=== PATIENT | female | born 1940 | race Caucasian/White ===

== ENCOUNTER → 2017-02-20 | Outpatient (CLI) | payer MEDICARE ==
[2013-12-24 12:22] VITALS: BP 138/65
[~2017-02-20] MED LIST: DIAZ5TAB4 PO; GLUC100018 PO; IBUP200C9 PO; VIT1TABL32 PO
--- NOTE | 2017-02-20 12:33 | CARD ---
APPROVED REPORT EXAM: Two-dimensional and M-mode echocardiogram with Doppler and color Doppler. Other Information Quality : Average INDICATION Syncope 2D DIMENSIONS RVDd2.9 (2.9-3.5cm)Left Atrium(2D)3.6 (1.6-4.0cm) IVSd1.0 (0.7-1.1cm)Aortic Root(2D)2.7 (2.0-3.7cm) LVDd4.5 (3.9-5.9cm)LVOT Diameter1.8 (1.8-2.4cm) PWd0.9 (0.7-1.1cm)LVDs3.7 (2.5-4.0cm) FS (%) 17.6 %SV33.6 ml LVEF(%)55.0 (>50%) Aortic Valve AoV Peak Chris.177.2cm/sAoV VTI42.2cm AO Peak GR.12.6mmHgLVOT Peak Chris.63.6cm/s LVOT VTI 17.35cmAO Mean GR.8mmHg ERVIN (VMAX)0.49jr3BAJ (VTI)0.90cm2 Mitral Valve MV E Nrznmlza51.6cm/sMV DECEL [id number] MV A Plykxcyk16.6cm/sMV E Mean Gr.1mmHg MV EWM64guU/A Ratio0.9 MV A Gtbaqdpo03vsORB (PHT)3.16cm2 TDI E/Lateral E'8.0E/Medial E'6.2 Pulmonary Valve PV Peak Aclhdnkx448.7cm/sPV Peak Grad.7mmHg RVOT VTI13.2cm Tricuspid Valve TR P. Krdorafc018gk/sTR Peak Gr.28mmHg Pulmonary Vein S1 Folxjpli68.3cm/sD2 Xemxpfxg90.0cm/s LEFT VENTRICLE The left ventricle is normal size. There is normal left ventricular wall thickness. The left ventricu lar systolic function is mildly reduced. Estimated visual EF of 45-50% There is normal LV segmental w all motion. The left ventricular diastolic function and filling is normal for age. RIGHT VENTRICLE The right ventricle is normal size. There is normal right ventricular wall thickness. The right ventr icular systolic function is normal. ATRIA The left atrium size is normal. The right atrium size is normal. The interatrial septum is intact wit h no evidence for an atrial septal defect or patent foramen ovale as noted on 2-D or Doppler imaging. AORTIC VALVE The aortic valve is sclerotic and not well visualized. It appears to have restricted leaflet motion, without clear evidence of stenosis by doppler testing. Doppler and Color Flow revealed no significant aortic regurgitation. There is no significant aortic valvular stenosis. MITRAL VALVE The mitral valve is normal in structure and function. There is no mitral valve stenosis. Doppler and Color Flow revealed mild mitral regurgitation. TRICUSPID VALVE The tricuspid valve is normal in structure and function. Doppler and Color Flow revealed mild tricusp id regurgitation. The PA pressure was estimated at 31 mmHg. PULMONIC VALVE Doppler and Color Flow revealed no pulmonic valvular regurgitation. GREAT VESSELS The aortic root is normal in size. Normal pulmonary venous flow (Doppler). The IVC is normal in size and collapses >50% with inspiration. PERICARDIAL EFFUSION There is no pleural effusion. There is no evidence of significant pericardial effusion. Critical Notification Critical Value: No <Conclusion> The left ventricular systolic function is mildly reduced. Estimated visual EF of 45-50% There is normal LV segmental wall motion. The aortic valve is sclerotic and not well visualized. It appears to have restricted leaflet motion, without clear evidence of stenosis by doppler testing.
== END | disposition home or self-care (01) ==
LOC: ECHO 10:19
PROVIDERS: ATTEND Internal Medicine Cardiovascular Disease
DX: I08.1 Rheumatic disorders of both mitral and tricuspid valves (principal); I47.1 Supraventricular tachycardia; R55 Syncope and collapse
CPT/HCPCS: 93306

== ENCOUNTER → 2017-04-17 | Outpatient (CLI) | payer MEDICARE ==
[2017-03-21 10:15] VITALS: BP 167/85
== END | disposition home or self-care (01) ==
LOC: PMGWOUND 12:13
PROVIDERS: ATTEND Emergency Medicine Undersea and Hyperbaric Medicine
DX: S51.811A Laceration without foreign body of right forearm, initial encounter (principal); Z85.3 Personal history of malignant neoplasm of breast; Z87.891 Personal history of nicotine dependence; W54.0XXA Bitten by dog, initial encounter; Y93.9 Activity, unspecified; Y99.8 Other external cause status; Y92.9 Unspecified place or not applicable
CPT/HCPCS: 99213

== ENCOUNTER → 2019-03-02 | Outpatient (CLI) | payer MEDICARE ==
[2017-03-21 10:15] VITALS: BP 167/85
--- NOTE | 2019-03-03 08:55 | CARD ---
MR#: [id number] Date of Study: 03/02/2019 Ordering Physician: PRINCESS CERNA, Referring Physician: Lucretia OLVERA: Loren Bowden LAURITA APPROVED REPORT EXAM: Two-dimensional and M-mode echocardiogram with Doppler and color Doppler. Other Information Quality : AverageHR: 64bpm Rhythm : NSR INDICATION Arrhythmia 2D DIMENSIONS RVDd2.6 (2.9-3.5cm)Left Atrium(2D)4.1 (1.6-4.0cm) IVSd1.1 (0.7-1.1cm)Aortic Root(2D)2.0 (2.0-3.7cm) LVDd5.4 (3.9-5.9cm)LVOT Diameter2.0 (1.8-2.4cm) PWd0.5 (0.7-1.1cm)LVDs3.9 (2.5-4.0cm) FS (%) 28.4 %SV77.0 ml LVEF(%)54.2 (>50%) Aortic Valve AoV Peak Chris.249.2cm/sAoV VTI67.2cm AO Peak GR.24.8mmHgLVOT Peak Chris.65.9cm/s AO Mean GR.16mmHg Mitral Valve MV E Vtzinfbh33.9cm/sMV E Peak Gr.4mmHg MV DECEL [id number] A Hrktkzoy85.0cm/s MV E Mean Gr.1mmHgE/A Ratio1.5 Pulmonary Valve PV Peak Mrpjffvn27.3cm/s Tricuspid Valve TR P. Mdknwxup090rf/sRAP GVPUIDBC7moQp TR Peak Gr.53czXnKDIG36pqUf Pulmonary Vein S1 Rdwwwwjf28.8cm/sD2 Bnjzztzc30.1cm/s LEFT VENTRICLE The left ventricle is normal size. There is borderline to mild concentric left ventricular hypertroph y. The left ventricular systolic function is low normal. The Ejection Fraction is 50%. There is jeremy l LV segmental wall motion. Transmitral Doppler flow pattern is Grade II-pseudonormal filling dynamic s. RIGHT VENTRICLE The right ventricle is normal size. There is normal right ventricular wall thickness. The right ventr icular systolic function is normal. ATRIA The left atrium is mildly dilated. The right atrium size is normal. The interatrial septum is intact with no evidence for an atrial septal defect or patent foramen ovale as noted on 2-D or Doppler imagi ng. AORTIC VALVE The aortic valve is calcified and displays decreased opening. The aortic valve is trileaflet. Doppler and Color Flow revealed no significant aortic regurgitation. There is mild valvular aortic stenosis. Maximum pressure gradient of 25 mmHg and mean pressure gradient of 16 mmHg. MITRAL VALVE Mitral annular calcification is mild. There is no evidence of mitral valve prolapse. There is no mitr al valve stenosis. Doppler and Color-flow revealed mild mitral regurgitation. TRICUSPID VALVE The tricuspid valve is normal in structure and function. Doppler and Color Flow revealed trace to mil d tricuspid regurgitation. The PA pressure was estimated at 33 mmHg. There is no tricuspid valve prol apse or vegetation. There is no tricuspid valve stenosis. PULMONIC VALVE The pulmonic valve is not well visualized. GREAT VESSELS The aortic root is normal in size. The ascending aorta is normal in size. The IVC is normal in size a nd collapses >50% with inspiration. PERICARDIAL EFFUSION There is no evidence of significant pericardial effusion. Critical Notification Critical Value: No <Conclusion> The left ventricular systolic function is low normal. The Ejection Fraction is 50%. Transmitral Doppler flow pattern is Grade II-pseudonormal filling dynamics. There is mild valvular aortic stenosis. Mean pressure gradient of 16 mmHg. Mild mitral regurgitation. Trace to mild tricuspid regurgitation. The PA pressure was estimated at 33 mmHg. There is no evidence of significant pericardial effusion. Signed by : Princess Cerna, Electronically Approved : 03/03/2019 08:55:08
== END | disposition home or self-care (01) ==
LOC: ECHO 12:38
PROVIDERS: ATTEND Internal Medicine Cardiovascular Disease
DX: I08.3 Combined rheumatic disorders of mitral, aortic and tricuspid valves (principal); I47.1 Supraventricular tachycardia
CPT/HCPCS: 93306

== ENCOUNTER → 2020-05-25 | Outpatient (CLI) | payer MEDICARE ==
[2017-03-21 10:15] VITALS: BP 167/85
--- NOTE | 2020-05-25 17:41 | CARD ---
MR#: [id number] Date of Study: 05/25/2020 Ordering Physician: PRINCESS LEE, Referring Physician: PRINCESS LEE Tech: Evy Zuniga RDCS APPROVED REPORT EXAM: Two-dimensional and M-mode echocardiogram with Doppler and color Doppler. Other Information Quality : Good INDICATION Paroxysmal Atrial Fibrillation 2D DIMENSIONS RVDd2.6 (2.9-3.5cm)Left Atrium(2D)3.7 (1.6-4.0cm) IVSd1.0 (0.7-1.1cm)Aortic Root(2D)2.9 (2.0-3.7cm) LVDd5.2 (3.9-5.9cm)LVOT Diameter2.1 (1.8-2.4cm) PWd0.9 (0.7-1.1cm)LVDs3.8 (2.5-4.0cm) FS (%) 26.0 %SV65.3 ml Aortic Valve AoV Peak Chris.284.4cm/sAoV VTI75.7cm AO Peak GR.32.4mmHgLVOT Peak Chris.75.8cm/s AO Mean GR.22mmHgAVA (VMAX)0.91cm2 ERVIN (VTI)0.80cm2 Mitral Valve MV E Rkevhztd97.4cm/sMV E Peak Gr.3mmHg MV DECEL [id number] A Cczzuhom69.9cm/s MV E Mean Gr.1mmHgE/A Ratio0.8 Tricuspid Valve TR P. Nxtnflrd834ly/sRAP QEEIQVVM2foIa TR Peak Gr.10psZuXTJV91ewSr Pulmonary Vein S1 Sgrsnamj82.8cm/sD2 Lgismaxq99.6cm/s LEFT VENTRICLE The left ventricle is normal size. There is borderline concentric left ventricular hypertrophy. The l eft ventricular systolic function is normal and the ejection fraction is within normal range. The Eje ction Fraction is 50-55%. There is normal LV segmental wall motion. Transmitral Doppler flow pattern is Grade I-abnormal relaxation pattern. RIGHT VENTRICLE The right ventricle is normal size. The right ventricular systolic function is normal. ATRIA The left atrium size is normal. The right atrium size is normal. The interatrial septum is intact wit h no evidence for an atrial septal defect or patent foramen ovale as noted on 2-D or Doppler imaging. AORTIC VALVE The aortic valve is calcified and displays decreased opening. Doppler and Color Flow revealed trace a ortic regurgitation. Calculated aortic valve maximum pressure gradient of 32 mmHg and mean pressure g radient of 22 mmHg. Visual analysis revealed moderate aortic stenosis. MITRAL VALVE Mitral annular calcification is moderate. The mitral valve is calcified. There is no evidence of mitr al valve prolapse. Calculated mitral valve area is 2.2 cm2 with maximum pressure gradient of 3 mmHg a nd mean pressure gradient of 1 mmHg. There is no significant mitral valve stenosis. Doppler and Color -flow revealed mild mitral regurgitation. TRICUSPID VALVE The tricuspid valve is normal in structure and function. Doppler and Color Flow revealed mild tricusp id regurgitation. The PA pressure was estimated at 28 mmHg. There is no tricuspid valve stenosis. PULMONIC VALVE The pulmonic valve is not well visualized. Doppler and Color Flow revealed mild pulmonic valvular reg urgitation. There is no pulmonic valvular stenosis. GREAT VESSELS The aortic root is normal in size. The ascending aorta is mildly dilated at 3.4 cm. The IVC is normal in size and collapses >50% with inspiration. PERICARDIAL EFFUSION There is no evidence of significant pericardial effusion. Critical Notification Critical Value: No <Conclusion> The left ventricle is normal size. The left ventricular systolic function is normal and the ejection fraction is within normal range. The Ejection Fraction is 50-55%. There is borderline concentric left ventricular hypertrophy. The aortic valve is calcified and displays decreased opening. Doppler and Color Flow revealed trace aortic regurgitation. Calculated aortic valve maximum pressure gradient of 32 mmHg and mean pressure gradient of 22 mmHg. Visual analysis revealed moderate aortic stenosis. Doppler and Color-flow revealed mild mitral regurgitation. Doppler and Color Flow revealed mild tricuspid regurgitation. The PA pressure was estimated at 28 mmHg. The ascending aorta is mildly dilated at 3.4 cm. Signed by : Sacha Mcgrath MD Electronically Approved : 05/25/2020 17:40:49
== END ==
LOC: ECHO 10:40
PROVIDERS: ATTEND Internal Medicine Cardiovascular Disease
DX: I47.1 Supraventricular tachycardia (principal); I08.8 Other rheumatic multiple valve diseases
CPT/HCPCS: 93306

== ENCOUNTER 2021-02-15 10:46 | Inpatient (IN) | payer MEDICARE ==
[~2021-02-15] VITALS: Ht 167.6 cm; Wt 62.7 kg
[2021-02-15] MEDS ORDERED: IV NORMAL SALINE 1000ML BAG 1,000 ML IV ONE (11:15)
[2021-02-15 11:33] LABS: BASO % 0 % (0-3); EOS % 0 % (0-3); HEMATOCRIT 28.2 % (36.0-47.0); HEMOGLOBIN 9.3 g/dL (12.0-15.5); LYMPH # 2.7 x10^3/uL (1.0-4.8); LYMPH % 18 % (24-48); MEAN CORPUSCULAR HEMOGLOBIN 30 pg (25-35); MEAN CORPUSCULAR HGB CONC 33 g/dL (31-37); MEAN CORPUSCULAR VOLUME 92 fL (79-100); MONO # 0.5 x10^3/uL (0.0-1.1); MONO % 4 % (0-9); NEUT % 79 % (31-73); PLATELET COUNT 284 x10^3/uL (140-400); RED BLOOD COUNT 3.06 x10^6/uL (3.50-5.40); RED CELL DISTRIBUTION WIDTH 13.9 % (11.5-14.5); WHITE BLOOD COUNT 15.2 x10^3/uL (4.0-11.0)
[2021-02-15 11:39] LABS: FECAL OB PT POSITIVE (NEG)
[2021-02-15 11:42] LABS: CALCIUM 8.8 mg/dL (8.5-10.1); CREATININE 1.2 mg/dL (0.6-1.0); GFR 43.1; POTASSIUM 4.6 mmol/L (3.5-5.1)
[2021-02-15 11:48] LABS: ALBUMIN 3.2 g/dL (3.4-5.0); MAGNESIUM 1.9 mg/dL (1.8-2.4); PHOSPHORUS 3.6 mg/dL (2.6-4.7); TOTAL BILIRUBIN 0.2 mg/dL (0.2-1.0); TOTAL PROTEIN 6.5 g/dL (6.4-8.2)
[2021-02-15 11:56] LABS: CREATINE KINASE 53 U/L (26-192); PROTHROMBIN TIME PATIENT 13.1 SEC (11.7-14.0)
--- NOTE | 2021-02-15 12:12 | PDOC1 ---
History and Physical Date of Admission Date of Admission DATE: 02/15/21 TIME: 12:12 Identification/Chief Complaint Chief Complaint weak with dark stools, anemic History of Present Illness History of Present Illness 80-year-old female who presented to the emergency department awoke , felt weak and dizzy this morning patient's went directly to the bathroom and had a dark bowel movement, was unable to walk without holding onto the steele because she felt so weak and dizzy. cr 1.2 admits to taking lots of Advil recently for arthritis hgb returned at 9.3, She is not sure of her last colonoscopy impression / GI bleed suspect PUD vs gastric / vs duodenal ulcer sec to Advil Gastrointestinal hemorrhage, unspecified /osteoarthritis /STEPHIE suspect acute vasomotor nephropathy Near syncope, likely vasovagal near syncope Weakness with dizziness, multifactorial with acute blood loss , volume depletion PLAN ADMIT, IV PROTONIX, GI CONSULT,NPO, SERIAL H/H /scd's /iv protoni serial h/h q 8 hrs, transfuse for hgb < 7.5 /no NSAIDS /TELE nephrology consut /iv fluid support Past Medical History Past Medical History Past Medical History Past Medical History: Cancer, Other Additional Past Medical Histor: degenerative disc disease, spastic colon, ca breast,PVC'S Past Surgical History: Appendectomy, Cholecystectomy Additional Past Surgical Histo: R lumpectomy Smoking Status: Never Smoker Alcohol Use: None Drug Use: None GM HAD DIABETES Cardiovascular: Hyperlipidemia Musculoskeletal: Osteoarthritis Infectious disease: No pertinent hx ENT: No pertinent hx Renal/: No pertinent hx Endocrine: No pertinent hx Family History Family History: Diabetes Family History: Grandparents Social History Smoke: No ALCOHOL: none Drugs: None Current Medications Current Medications Current Medications Sodium Chloride 1,000 ml @ 1,000 mls/hr 1X ONCE IV Last administered on 02/15/21at 11:00; Start 02/15/21 at 11:15; Stop 02/15/21 at 12:14 Active Scripts Active Reported Diazepam 5 Mg Tablet 1 Tab PO BID Ocuvite Tablet (Vit A,C & E/Lutein/Minerals) 1 Each Tablet 1 Each PO Advil (Ibuprofen) 200 Mg Capsule 200 Mg PO Glucosamine (Glucosamine Sulfate 2KCL) 1,000 Mg Tablet 1,000 Mg PO Allergies Allergies: Coded Allergies: Penicillins (Verified Allergy, Mild, [facility], 12/22/13) Sulfa (Sulfonamide Antibiotics) (Verified Allergy, Mild, [facility], 12/22/13) latex (Verified Allergy, Mild, [facility], 12/22/13) ROS Review of System 14 PT ROS OTHERWISE NEG General: YES: Fatigue; No: Chills, Night Sweats, Malaise, Appetite, Other PSYCHOLOGICAL ROS: No: Anxiety, Behavioral Disorder, Concentration difficultie, Decreased libido, Depression, Disorientation, Hallucinations, Hostility, Irritablity, Memory difficulties, Mood Swings, Obsessive thoughts, Physical abuse, Sexual abuse, Sleep disturbances, Suicidal ideation, Other Eyes: No Blurry vision, No Decreased vision, No Double vision, No Dry eyes, No Excessive tearing, No Eye Pain, No Itchy Eyes, No Loss of vision, No Photophobia, No Scotomata, No Uses contacts, No Uses glasses, No Other HEENT: No: Heacaches, Visual Changes, Hearing change, Nasal congestion, Nasal discharge, Oral lesions, Sinus pain, Sore Throat, Epistaxis, Sneezing, Snoring, Tinnitus, Vertigo, Vocal changes, Other ALLERGY AND IMMUNOLOGY: YES: Hives; No: Insect Bite Sensitivity, Itchy/Watery Eyes, Nasal Congestion, Post Nasal Drip, Seasonal Allergies, Other Hematological and Lymphatic: YES: Bleeding Problems; No: Blood Clots, Blood Transfusions, Brusing, Night Sweats, Pallor, Swollen Lymph Nodes, Other ENDOCRINE: No: Breast Changes, Galactorrhea, Hair Pattern Changes, Hot Flashes, Malaise/lethargy, Mood Swings, Palpitations, Polydipsia/polyuria, Skin Changes, Temperature Intolerance, Unexpected Weight Changes, Other Breast: No New/Changing Breast Lumps, No Nipple changes, No Nipple discharge, No Other Respiratory: No: Cough, Hemoptysis, Orthopnea, Pleuritic Pain, Shortness of breath, SOB with excertion, Sputum Changes, Stridor, Tachypnea, Wheezing, Other Cardiovascular: No Chest Pain, No Palpitations, No Orthopnea, No Paroxysmal Noc. Dyspnea, No Edema, No Lt Headedness, No Other Gastrointestinal: Yes Melena Genitourinary: No Dysuria, No Frequency, No Incontinence, No Hematuria, No Retention, No Discharge, No Urgency, No Pain, No Flank Pain, No Other, No , No , No , No , No , No , No Musculoskeletal: No Gait Disturbance, No Joint Pain, No Joint Stiffness, No Joint Swelling, No Muscle Pain, No Muscular Weakness, No Pain In:, No Swelling In:, No Other Neurological: No Behavorial Changes, No Bowel/Bladder ControlChng, No Confusion, No Dizziness, No Gait Disturbance, No Headaches, No Impaired Coord/balance, No Memory Loss, No Numbness/Tingling, No Seizures, No Speech Problems, No Tremors, No Visual Changes, No Weakness, No Other Skin: No Dry Skin, No Eczema, No Hair Changes, No Lumps, No Mole Changes, No Mottling, No Nail Changes, No Pruritus, No Rash, No Skin Lesion Changes, No Other, No Acne Physical Exam Physical Exam Constitutional: well nourished, no acute distress, non-toxic appearance. lying on gurney in ER HENT: Normocephalic, atraumatic. Eyes: Conjunctiva normal, no discharge. Neck: Normal range of motion, no stridor. Cardiovascular: No cyanosis appreciated, distal cap refill less than 2 seconds. Lungs & Thorax: CTA Abdomen: Nontender, no abnormalities noted. Normal bowel sounds Skin: Warm, dry, no erythema, no rash. Back: No tenderness, no deformities. Extremities: No tenderness, no cyanosis, no clubbing, ROM intact, no edema. Neurologic: Alert and oriented X 3, normal motor function, normal sensory function, no focal deficits noted. Psychologic: Affect normal, judgment normal, mood normal. General: Alert, Oriented X3, Cooperative HEENT: Atraumatic, PERRLA, EOMI, Mucous membr. moist/pink Lungs: Clear to auscultation, Normal air movement Heart: S1S2, RRR, no thrills, no jug vein distention Breasts: Not examined Abdomen: Normal bowel sounds, Soft, No hepatosplenomegaly Rectal Exam: not examined PELVIC: Examination not indicated Extremities: No clubbing, No cyanosis, No edema Skin: No breakdown, No significant lesion Neuro: Normal speech, Strength at 5/5 X4 ext, Cranial nerves 3-12 NL Psych/Mental Status: Mental status NL, Mood NL Vitals Vitals Vital Signs Date Time Temp Pulse Resp B/P (MAP) Pulse Ox O2 Delivery O2 Flow Rate FiO2 02/15/21 10:54 97.9 83 22 140/66 (90) 98 Room Air 97.9 Labs Labs Laboratory Tests Test 02/15/21 11:00 02/15/21 11:20 White Blood Count 15.2 x10^3/uL (4.0-11.0) Red Blood Count 3.06 x10^6/uL (3.50-5.40) Hemoglobin 9.3 g/dL (12.0-15.5) Hematocrit 28.2 % (36.0-47.0) Mean Corpuscular Volume 92 fL (79-100) Mean Corpuscular Hemoglobin 30 pg (25-35) Mean Corpuscular Hemoglobin Concent 33 g/dL (31-37) Red Cell Distribution Width 13.9 % (11.5-14.5) Platelet Count 284 x10^3/uL (140-400) Neutrophils (%) (Auto) 79 % (31-73) Lymphocytes (%) (Auto) 18 % (24-48) Monocytes (%) (Auto) 4 % (0-9) Eosinophils (%) (Auto) 0 % (0-3) Basophils (%) (Auto) 0 % (0-3) Neutrophils # (Auto) 12.0 x10^3/uL (1.8-7.7) Lymphocytes # (Auto) 2.7 x10^3/uL (1.0-4.8) Monocytes # (Auto) 0.5 x10^3/uL (0.0-1.1) Eosinophils # (Auto) 0.0 x10^3/uL (0.0-0.7) Basophils # (Auto) 0.0 x10^3/uL (0.0-0.2) Sodium Level 142 mmol/L (136-145) Potassium Level 4.6 mmol/L (3.5-5.1) Chloride Level 105 mmol/L (98-107) Carbon Dioxide Level 27 mmol/L (21-32) Anion Gap 10 (6-14) Blood Urea Nitrogen 69 mg/dL (7-20) Creatinine 1.2 mg/dL (0.6-1.0) Estimated GFR (Cockcroft-Gault) 43.1 BUN/Creatinine Ratio 58 (6-20) Glucose Level 200 mg/dL (70-99) Calcium Level 8.8 mg/dL (8.5-10.1) Phosphorus Level 3.6 mg/dL (2.6-4.7) Magnesium Level 1.9 mg/dL (1.8-2.4) Total Bilirubin 0.2 mg/dL (0.2-1.0) Aspartate Amino Transf (AST/SGOT) 17 U/L (15-37) Alanine Aminotransferase (ALT/SGPT) 23 U/L (14-59) Alkaline Phosphatase 47 U/L (46-116) Troponin I Quantitative < 0.017 ng/mL (0.000-0.055) Total Protein 6.5 g/dL (6.4-8.2) Albumin 3.2 g/dL (3.4-5.0) Albumin/Globulin Ratio 1.0 (1.0-1.7) Stool Occult Blood Positive (NEG) Laboratory Tests Test 02/15/21 11:00 02/15/21 11:20 White Blood Count 15.2 x10^3/uL (4.0-11.0) Red Blood Count 3.06 x10^6/uL (3.50-5.40) Hemoglobin 9.3 g/dL (12.0-15.5) Hematocrit 28.2 % (36.0-47.0) Mean Corpuscular Volume 92 fL (79-100) Mean Corpuscular Hemoglobin 30 pg (25-35) Mean Corpuscular Hemoglobin Concent 33 g/dL (31-37) Red Cell Distribution Width 13.9 % (11.5-14.5) Platelet Count 284 x10^3/uL (140-400) Neutrophils (%) (Auto) 79 % (31-73) Lymphocytes (%) (Auto) 18 % (24-48) Monocytes (%) (Auto) 4 % (0-9) Eosinophils (%) (Auto) 0 % (0-3) Basophils (%) (Auto) 0 % (0-3) Neutrophils # (Auto) 12.0 x10^3/uL (1.8-7.7) Lymphocytes # (Auto) 2.7 x10^3/uL (1.0-4.8) Monocytes # (Auto) 0.5 x10^3/uL (0.0-1.1) Eosinophils # (Auto) 0.0 x10^3/uL (0.0-0.7) Basophils # (Auto) 0.0 x10^3/uL (0.0-0.2) Sodium Level 142 mmol/L (136-145) Potassium Level 4.6 mmol/L (3.5-5.1) Chloride Level 105 mmol/L (98-107) Carbon Dioxide Level 27 mmol/L (21-32) Anion Gap 10 (6-14) Blood Urea Nitrogen 69 mg/dL (7-20) Creatinine 1.2 mg/dL (0.6-1.0) Estimated GFR (Cockcroft-Gault) 43.1 BUN/Creatinine Ratio 58 (6-20) Glucose Level 200 mg/dL (70-99) Calcium Level 8.8 mg/dL (8.5-10.1) Phosphorus Level 3.6 mg/dL (2.6-4.7) Magnesium Level 1.9 mg/dL (1.8-2.4) Total Bilirubin 0.2 mg/dL (0.2-1.0) Aspartate Amino Transf (AST/SGOT) 17 U/L (15-37) Alanine Aminotransferase (ALT/SGPT) 23 U/L (14-59) Alkaline Phosphatase 47 U/L (46-116) Troponin I Quantitative < 0.017 ng/mL (0.000-0.055) Total Protein 6.5 g/dL (6.4-8.2) Albumin 3.2 g/dL (3.4-5.0) Albumin/Globulin Ratio 1.0 (1.0-1.7) Stool Occult Blood Positive (NEG) Images Images ATRIA The left atrium size is normal. The right atrium size is normal. The interatrial septum is intact with no evidence for an atrial septal defect or patent foramen ovale as noted on 2-D or Doppler imaging. AORTIC VALVE The aortic valve is calcified and displays decreased opening. Doppler and Color Flow revealed trace aortic regurgitation. Calculated aortic valve maximum pressure gradient of 32 mmHg and mean pressure gradient of 22 mmHg. Visual analysis revealed moderate aortic stenosis. MITRAL VALVE Mitral annular calcification is moderate. The mitral valve is calcified. There is no evidence of mitral valve prolapse. Calculated mitral valve area is 2.2 cm2 with maximum pressure gradient of 3 mmHg and mean pressure gradient of 1 mmHg. There is no significant mitral valve stenosis. Doppler and Color-flow revealed mild mitral regurgitation. TRICUSPID VALVE The tricuspid valve is normal in structure and function. Doppler and Color Flow revealed mild tricuspid regurgitation. The PA pressure was estimated at 28 mmHg. There is no tricuspid valve stenosis. PULMONIC VALVE The pulmonic valve is not well visualized. Doppler and Color Flow revealed mild pulmonic valvular regurgitation. There is no pulmonic valvular stenosis. GREAT VESSELS The aortic root is normal in size. The ascending aorta is mildly dilated at 3.4 cm. The IVC is normal in size and collapses >50% with inspiration. PERICARDIAL EFFUSION There is no evidence of significant pericardial effusion. Critical Notification Critical Value: No <Conclusion> The left ventricle is normal size. The left ventricular systolic function is normal and the ejection fraction is within normal range. The Ejection Fraction is 50-55%. There is borderline concentric left ventricular hypertrophy. The aortic valve is calcified and displays decreased opening. Doppler and Color Flow revealed trace aortic regurgitation. Calculated aortic valve maximum pressure gradient of 32 mmHg and mean pressure gradient of 22 mmHg. Visual analysis revealed moderate aortic stenosis. Doppler and Color-flow revealed mild mitral regurgitation. Doppler and Color Flow revealed mild tricuspid regurgitation. The PA pressure was estimated at 28 mmHg. The ascending aorta is mildly dilated at 3.4 cm. Signed by : Sacha Mcgrath MD PATIENT: ZO BANEGAS EACCOUNT: [id number] : 1940 LOCATION: ER AGE: 80 SEX: F EXAM STATUS: REG ER ORD. PHYSICIAN: JOEY MALDONADO APRN REASON: Near syncope PROCEDURE: CHEST AP ONLY XR CHEST 1V History: Near syncope Comparison: None. Technique: AP radiograph of the chest. Findings: The lungs are adequately and symmetrically inflated. No airspace consolidation, pleural effusion or pneumothorax. The cardiomediastinal silhouette and pulmonary vasculature are within normal limits. Right mastectomy changes. No acute osseous abnormality. Impression: 1. No acute cardiopulmonary process. Electronically signed by: Partha Arellano MD (02/15/2021 12:16 PM) [id number] DICTATED and SIGNED BY: PARTHA ARELLANO MD DATE: 02/15/21 [id number] VTE Prophylaxis Ordered VTE Prophylaxis Devices: No VTE Pharmacological Prophylaxi: Contraindicated Assessment/Plan Assessment/Plan IMPRESSION GI bleed suspect PUD vs gastric / vs duodenal ulcer sec to Advil Gastrointestinal hemorrhage, unspecified osteoarthritis STEPHIE suspect acute vasomotor nephropathy Near syncope, likely vasovagal near syncope Weakness with dizziness, multifactorial with acute blood loss , volume depletion plan ADMITTED npo GI consult scd's iv protonix serial h/h q 8 hrs, transfuse for hgb < 7.5 no NSAIDS TELE nephrology consut iv fluid support Justifications for Admission Other Justification DAVE JOSEPH MD Feb 15, 2021 12:12
--- NOTE | 2021-02-15 12:18 | RAD ---
XR CHEST 1V History: Near syncope Comparison: None. Technique: AP radiograph of the chest. Findings: The lungs are adequately and symmetrically inflated. No airspace consolidation, pleural effusion or p neumothorax. The cardiomediastinal silhouette and pulmonary vasculature are within normal limits. Rig ht mastectomy changes. No acute osseous abnormality. Impression: 1. No acute cardiopulmonary process. Electronically signed by: Partha Cornell MD (02/15/2021 12:16 PM) [id number]
--- NOTE | 2021-02-15 12:21 | PHYS DOC ---
Past Medical History Past Medical History: Cancer, Other Additional Past Medical Histor: degenerative disc disease, spastic colon, ca breast,PVC'S (JOEY MALDONADO APRN) Past Surgical History: Appendectomy, Cholecystectomy Additional Past Surgical Histo: R lumpectomy (JOEY MALDONADO APRN) Smoking Status: Never Smoker Alcohol Use: None Drug Use: None (JOEY MALDONADO APRN) General Adult EDM: Chief Complaint: SYNCOPE HPI: HPI: Patient is a 80-year-old female who presents to the emergency department rep orting she felt weak and dizzy this morning when she woke up, patient's went directly to the bathroom and had a dark bowel movement, states she was unable to walk without holding onto the steele because she felt so weak and dizzy, denies syncopal episode. States she did have significant lower abdominal pain when she woke up however did resolve after her bowel movement. Patient currently denies any pain or discomfort, states she feels only weak and dizzy. Denies diaphoretic episodes, denies chest pain or shortness of breath. Patient denies other physical complaints or physical concerns. (JOEY MALDONADO APRN) Review of Systems: Review of Systems: 14 body systems of review of systems have been reviewed. See HPI for pertinent positives and negative responses, otherwise all other systems are negative, nonpertinent or noncontributory. Constitutional: Negative except as outlined in HPI above. Skin: Negative except as outlined in HPI above. Eyes: Negative except as outlined in HPI above. HENT: Negative except as outlined in HPI above. Respiratory: Negative except as outlined in HPI above. Cardiovascular: Negative except as outlined in HPI above. GI: Negative except as outlined in HPI above. : Negative except as outlined in HPI above. Musculoskeletal: Negative except as outlined in HPI above. Integument: Negative except as outlined in HPI above. Neurologic: Negative except as outlined in HPI above. Endocrine: Negative except as outlined in HPI above. Lymphatic: Negative except as outlined in HPI above. Psychiatric: Negative except as outlined in HPI above. (JOEY MALDONADO LIQUOR BLENDER) Heart Score: C/O Chest Pain: No Risk Factors: Risk Factors: DM, Current or recent (<one month) smoker, HTN, HLP, family history of CAD, obesity. Risk Scores: Score 0 - 3: 2.5% MACE over next 6 weeks - Discharge Home Score 4 - 6: 20.3% MACE over next 6 weeks - Admit for Clinical Observation Score 7 - 10: 72.7% MACE over next 6 weeks - Early Invasive Strategies (JOEY MALDONADO APRN) Current Medications: Current Medications Medications (Trade) Dose Ordered Sig/Clotilde Start Time Stop Time Status Last Admin Dose Admin Sodium Chloride 1,000 ml @ 1,000 mls/hr 1X ONCE 02/15/21 11:15 02/15/21 12:14 DC 02/15/21 11:00 1,000 MLS/HR (JOEY MALDONADO APRN) Allergies: Allergies: Allergies Coded Allergies Type Severity Reaction Last Updated Verified Penicillins Allergy Mild RESH 12/22/13 Yes Sulfa (Sulfonamide Antibiotics) Allergy Mild RASH 12/22/13 Yes latex Allergy Mild RASH 12/22/13 Yes (JOEY MALDONADO APRN) Physical Exam: PE: Constitutional: Well developed, well nourished, no acute distress, non-toxic ap pearance. 80-year-old female in no apparent distress. HENT: Normocephalic, atraumatic. Eyes: Conjunctiva normal, no discharge. Neck: Normal range of motion, no stridor. Cardiovascular: No cyanosis appreciated, distal cap refill less than 2 seconds. Lungs & Thorax: Patient is in no respiratory distress, no audible adventitious lung sounds appreciated. Abdomen: Nontender, no abnormalities noted. Normal bowel sounds all 4 quadrants, no pain to palpation. Skin: Warm, dry, no erythema, no rash. Back: No tenderness, no deformities. Extremities: No tenderness, no cyanosis, no clubbing, ROM intact, no edema. Neurologic: Alert and oriented X 3, normal motor function, normal sensory function, no focal deficits noted. Psychologic: Affect normal, judgement normal, mood normal. : Female nursing staff at bedside for armature balancer for digital rectal exam, fecal occult blood stool sample obtained and sent to lab, no rashes or lesions to the rectum, small 2 mm external hemorrhoid pink, not strangulated, at 6 o'clock position, no internal hemorrhoids appreciated, no anil blood noted, stool dark black in appearance. (JOEY MALDONADO APRN) Current Patient Data: Labs: Laboratory Tests Test 02/15/21 11:00 02/15/21 11:20 White Blood Count 15.2 x10^3/uL (4.0-11.0) H Red Blood Count 3.06 x10^6/uL (3.50-5.40) L Hemoglobin 9.3 g/dL (12.0-15.5) L Hematocrit 28.2 % (36.0-47.0) L Mean Corpuscular Volume 92 fL (79-100) Mean Corpuscular Hemoglobin 30 pg (25-35) Mean Corpuscular Hemoglobin Concent 33 g/dL (31-37) Red Cell Distribution Width 13.9 % (11.5-14.5) Platelet Count 284 x10^3/uL (140-400) Neutrophils (%) (Auto) 79 % (31-73) H Lymphocytes (%) (Auto) 18 % (24-48) L Monocytes (%) (Auto) 4 % (0-9) Eosinophils (%) (Auto) 0 % (0-3) Basophils (%) (Auto) 0 % (0-3) Neutrophils # (Auto) 12.0 x10^3/uL (1.8-7.7) H Lymphocytes # (Auto) 2.7 x10^3/uL (1.0-4.8) Monocytes # (Auto) 0.5 x10^3/uL (0.0-1.1) Eosinophils # (Auto) 0.0 x10^3/uL (0.0-0.7) Basophils # (Auto) 0.0 x10^3/uL (0.0-0.2) Sodium Level 142 mmol/L (136-145) Potassium Level 4.6 mmol/L (3.5-5.1) Chloride Level 105 mmol/L (98-107) Carbon Dioxide Level 27 mmol/L (21-32) Anion Gap 10 (6-14) Blood Urea Nitrogen 69 mg/dL (7-20) H Creatinine 1.2 mg/dL (0.6-1.0) H Estimated GFR (Cockcroft-Gault) 43.1 BUN/Creatinine Ratio 58 (6-20) H Glucose Level 200 mg/dL (70-99) H Calcium Level 8.8 mg/dL (8.5-10.1) Phosphorus Level 3.6 mg/dL (2.6-4.7) Magnesium Level 1.9 mg/dL (1.8-2.4) Total Bilirubin 0.2 mg/dL (0.2-1.0) Aspartate Amino Transferase (AST) 17 U/L (15-37) Alanine Aminotransferase (ALT) 23 U/L (14-59) Alkaline Phosphatase 47 U/L (46-116) Troponin I Quantitative < 0.017 ng/mL (0.000-0.055) Total Protein 6.5 g/dL (6.4-8.2) Albumin 3.2 g/dL (3.4-5.0) L Albumin/Globulin Ratio 1.0 (1.0-1.7) Stool Occult Blood Positive (NEG) Laboratory Tests 02/15/21 11:00 Laboratory Tests 02/15/21 11:00 Vital Signs: Vital Signs Date Time Temp Pulse Resp B/P (MAP) Pulse Ox O2 Delivery O2 Flow Rate FiO2 02/15/21 10:54 97.9 83 22 140/66 (90) 98 Room Air 97.9 (JOEY MALDONADO APRN) EKG: EKG: EKG performed at 1053 by ED nursing staff shows a normal sinus rhythm without other ectopy heart rate 84 bpm, GA interval 0.158, QTc interval 0.460, no acute STEMI, no ACS, no acute ischemia appreciated, EKG interpreted by ED attending physician Dr. Li. (JOEY MALDONADO APRN) Radiology/Procedures: Radiology/Procedures: [] (JOEY MALDONADO APRN) Course & Med Decision Making: Course & Med Decision Making Pertinent Labs and Imaging studies reviewed. (See chart for details) 80-year-old female, vital signs reviewed, presents emergency department concerning weak and dizziness with dark black stool this morning. Patient's physical examination concerning for possible anemia, GI bleed. Will order abdominal work-up. Patient's occult blood stool positive, the patient is not anemic, vital signs are stable, discussed findings with patient, will recommend admission to [facility] to further investigate GI bleed, dizziness with near syncope. Patient is amenable to ED planning. Called and discussed patient case and ED work-up with inpatient management physician Dr. Alan who agrees patient's case warrants admission to the hospital for inpatient on med telemetry unit, Dr. Alan requested CT abdomen pelvis prior to moving to unit. CT abdomen pelvis ordered. Dr. Alan to assume care, will examine patient for admission. (JOEY MALDONADO APRN) Enedelia Disclaimer: Enedelia Disclaimer: This electronic medical record was generated, in whole or in part, using a voice recognition dictation system. (JOEY MALDONADO APRN) Departure Departure Impression: Primary Impression: GI bleed Qualified Codes: K92.2 - Gastrointestinal hemorrhage, unspecified Additional Impressions: Near syncope Weakness with dizziness Disposition: ADMITTED INPATIENT Admitting Physician: RA (Admit to Dr. Alan [facility] telemetry unit) (JOEY MALDONADO APRN) Condition: STABLE Referrals: GENE LI MD (PCP) Attending Signature I have participated in the care of this patient and I have reviewed and agree with all pertinent clinical information above including history, exam, and recommendations. (NORMAN LOREDO DO) JOEY MALDONADO APRN Feb 15, 2021 12:21 NORMAN LOREDO DO Feb 15, 2021 13:15
[2021-02-15 12:39] LABS: BILIRUBIN,URINE NEGATIVE (NEG); CLARITY,URINE CLEAR; COLOR,URINE YELLOW; NITRITE,URINE NEGATIVE (NEG); PH,URINE 5.5 (<5.0-8.0); PROTEIN,URINE NEGATIVE (NEG-TRACE); UROBILINOGEN,URINE 0.2 mg/dL (0.2 mg/dL)
[2021-02-15 12:51] LABS: BACTERIA,URINE 0 /HPF (0-FEW); HYALINE CASTS, URINE FEW /HPF; RBC,URINE 0 /HPF (0-2); WBC,URINE OCC /HPF (0-4)
--- NOTE | 2021-02-15 13:00 | RAD ---
EXAMINATION: CT abdomen and pelvis without IV contrast. INDICATION:80 years, Female, near syncope, occult blood in stool. Abdominal pain. TECHNIQUE: Axial CT images of the abdomen and pelvis were obtained. Coronal and sagittal reformatted performed. COMPARISON: Lumbar spine radiograph dated 12/24/2013. Exposure: One or more of the following individualized dose reduction techniques were utilized for thi s examination: 1. Automated exposure control 2. Adjustment of the mA and/or kV according to patient size 3. Use of iterative reconstruction technique. FINDINGS: LOWER CHEST: Left basilar subsegmental atelectasis. ABDOMEN/PELVIS: Within the limitation of noncontrast exam, Normal size and morphology of the liver. Two fluid density lesions in the left hepatic lobe, the larg est measures 2.7 cm, likely representing simple cysts. Unremarkable gallbladder, biliary ducts, splee n and pancreas. No adrenal nodule. No hydronephrosis or nephrolithiasis in either kidney. Nonspecific bilateral perinephric fat stranding. No bowel obstruction. Apparent wall thickening of the right colon without significant adjacent fat st randing. Colonic diverticulosis. Appendix is not seen with certainty. Moderate aortoiliac atheroscler otic calcifications without dilatation. No pneumoperitoneum or ascites. No lymphadenopathy in the abd omen or pelvis by size criteria. No suspicious pelvic masses. Underdistended urinary bladder which li mits evaluation. Unremarkable uterus. MUSCULOSKELETAL: Grade 1 anterolisthesis of L5 over S1 with severe degenerative changes, unchanged since 2014. Mild co mpression deformity of T12 vertebral body, unchanged since 2014. Diffuse osteopenia. IMPRESSION: 1. No acute abnormality in the abdomen or pelvis, within the limitation of noncontrast exam. 2. Apparent wall thickening of the right colon without significant fat stranding, findings may relate to underdistended lumen. Consider correlation with mild colitis. 3. Colonic diverticulosis without acute diverticulitis. 4. Other chronic/incidental findings, as described above. Electronically signed by: Cristobal Blevins MD (02/15/2021 12:57 PM) [id number]
[2021-02-15] MEDS ORDERED: guaiFENesin ORAL 200 MG/10 ML LIQUID. PO PRN (13:15)
[2021-02-15] MEDS: IV NORMAL SALINE 1000ML BAG 1,000 ML IV SCH (13:15)
[2021-02-15] MEDS ORDERED: ALBUTEROL SULFATE 2.5 MG/3 ML NEBU. NEB PRN (13:15)
[2021-02-15] MEDS ORDERED: ONDANSETRON PF 4 MG/2 ML VIAL. IV PRN (13:15)
[2021-02-15] MEDS ORDERED: ACETAMINOPHEN 650 MG SUPP.RECT. PR PRN (13:15)
[2021-02-15] MEDS ORDERED: 0.9 % SODIUM CHLORIDE 10 ML DISP.SYRIN. IV PRN (13:15)
[2021-02-15] MEDS ORDERED: DOCUSATE SODIUM 100 MG CAPSULE. PO PRN (13:15)
[2021-02-15 14:20] LABS: BASO % 0 % (0-3); EOS % 0 % (0-3); HEMATOCRIT 27.1 % (36.0-47.0); LYMPH # 2.1 x10^3/uL (1.0-4.8); LYMPH % 16 % (24-48); MEAN CORPUSCULAR HEMOGLOBIN 31 pg (25-35); MEAN CORPUSCULAR HGB CONC 33 g/dL (31-37); MEAN CORPUSCULAR VOLUME 93 fL (79-100); MONO # 0.3 x10^3/uL (0.0-1.1); MONO % 3 % (0-9); NEUT # 11.1 x10^3/uL (1.8-7.7); NEUT % 81 % (31-73); PLATELET COUNT 250 x10^3/uL (140-400); RED BLOOD COUNT 2.93 x10^6/uL (3.50-5.40); RED CELL DISTRIBUTION WIDTH 13.6 % (11.5-14.5); WHITE BLOOD COUNT 13.6 x10^3/uL (4.0-11.0)
[2021-02-15 14:30] VITALS: BP 150/72
[2021-02-15] MEDS: PANTOPRAZOLE IV PUSH 40 MG VIAL. IVP SCH (14:36)
--- NOTE | 2021-02-15 14:59 | PDOC2 ---
GI CONSULT Date of Service: DATE: 02/15/21 TIME: 14:43 Reason For Consult: GI bleed HPI: HPI: 80 y/o female admitted through ER. 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 Awoke this morning, was very weak - almost couldn't stand. [place] dizzy, had the urge to stool. Passed a lot of black liquid/loose/watery stool. [place] terrible. No h/o anemia or GI bleeding. No reflux/heartburn but has been taking 2 Tums before bed x 4-5 months "just because." No dysphagia, n/v, change in appetite, or weight loss. Might have had some "stabbing" pain occasionally on right side. Takes some sort of laxative/stool softener daily for h/o constipation - good control. No previous EGD. "Spastic colon" on colonoscopy w/ Dr. Cramer >10 years ago. Might have had gallbladder removed but can't remember. No liver, pancreas, or PUD history. H/o fibromyalgia - takes Advil BID (morning and afternoon) and 2 Advil PM QHS. Recently tried magnesium for insomnia - took three instead of two last night. Vaccinated for COVID. Augustus present. PMH: PMH: appendectomy, breast cancer s/p radiation and left lumpectomy FH: Family History: No pertinent hx Social History: Smoke: Quit (51 years ago when she was born again) ALCOHOL: none Drugs: None ROS: GEN: +sweats HEENT: Denies blurred vision, sore throat CV: Denies chest pain RESP: Denies shortness of air, cough GI: Per HPI : Denies hematuria, dysuria ENDO: Denies weight changes NEURO: +dizziness MSK: +weakness +chronic pain SKIN: Denies jaundice, pruritus Vitals: Vitals: Vital Signs Date Time Temp Pulse Resp B/P (MAP) Pulse Ox O2 Delivery O2 Flow Rate FiO2 02/15/21 12:27 90 16 137/78 (97) 97 Room Air 02/15/21 10:54 97.9 97.9 Labs: Labs: Laboratory Tests Test 02/15/21 11:00 02/15/21 11:20 02/15/21 12:22 02/15/21 12:40 White Blood Count 15.2 x10^3/uL (4.0-11.0) Red Blood Count 3.06 x10^6/uL (3.50-5.40) Hemoglobin 9.3 g/dL (12.0-15.5) Hematocrit 28.2 % (36.0-47.0) Mean Corpuscular Volume 92 fL (79-100) Mean Corpuscular Hemoglobin 30 pg (25-35) Mean Corpuscular Hemoglobin Concent 33 g/dL (31-37) Red Cell Distribution Width 13.9 % (11.5-14.5) Platelet Count 284 x10^3/uL (140-400) Neutrophils (%) (Auto) 79 % (31-73) Lymphocytes (%) (Auto) 18 % (24-48) Monocytes (%) (Auto) 4 % (0-9) Eosinophils (%) (Auto) 0 % (0-3) Basophils (%) (Auto) 0 % (0-3) Neutrophils # (Auto) 12.0 x10^3/uL (1.8-7.7) Lymphocytes # (Auto) 2.7 x10^3/uL (1.0-4.8) Monocytes # (Auto) 0.5 x10^3/uL (0.0-1.1) Eosinophils # (Auto) 0.0 x10^3/uL (0.0-0.7) Basophils # (Auto) 0.0 x10^3/uL (0.0-0.2) Prothrombin Time 13.1 SEC (11.7-14.0) Prothromb Time International Ratio 1.0 (0.8-1.1) Activated Partial Thromboplast Time 24 SEC (24-38) Sodium Level 142 mmol/L (136-145) Potassium Level 4.6 mmol/L (3.5-5.1) Chloride Level 105 mmol/L (98-107) Carbon Dioxide Level 27 mmol/L (21-32) Anion Gap 10 (6-14) Blood Urea Nitrogen 69 mg/dL (7-20) Creatinine 1.2 mg/dL (0.6-1.0) Estimated GFR (Cockcroft-Gault) 43.1 BUN/Creatinine Ratio 58 (6-20) Glucose Level 200 mg/dL (70-99) Calcium Level 8.8 mg/dL (8.5-10.1) Phosphorus Level 3.6 mg/dL (2.6-4.7) Magnesium Level 1.9 mg/dL (1.8-2.4) Total Bilirubin 0.2 mg/dL (0.2-1.0) Aspartate Amino Transf (AST/SGOT) 17 U/L (15-37) Alanine Aminotransferase (ALT/SGPT) 23 U/L (14-59) Alkaline Phosphatase 47 U/L (46-116) Creatine Kinase 53 U/L (26-192) Creatine Kinase MB (Mass) 0.8 ng/mL (0.0-3.6) Creatine Kinase MB Relative Index % (0-4) Troponin I Quantitative < 0.017 ng/mL (0.000-0.055) Total Protein 6.5 g/dL (6.4-8.2) Albumin 3.2 g/dL (3.4-5.0) Albumin/Globulin Ratio 1.0 (1.0-1.7) Stool Occult Blood Positive (NEG) Urine Collection Type Unknown Urine Color Yellow Urine Clarity Clear Urine pH 5.5 (<5.0-8.0) Urine Specific [place] 1.015 (1.000-1.030) Urine Protein Negative mg/dL (NEG-TRACE) Urine Glucose (UA) Negative mg/dL (NEG) Urine Ketones (Stick) Negative mg/dL (NEG) Urine Blood Negative (NEG) Urine Nitrite Negative (NEG) Urine Bilirubin Negative (NEG) Urine Urobilinogen Dipstick 0.2 mg/dL (0.2 mg/dL) Urine Leukocyte Esterase Negative (NEG) Urine RBC 0 /HPF (0-2) Urine WBC Occ /HPF (0-4) Urine Squamous Epithelial Cells Occ /LPF Urine Bacteria 0 /HPF (0-FEW) Urine Hyaline Casts Few /HPF SARS-CoV-2 Antigen (Rapid) Negative (NEGATIVE) Test 02/15/21 14:00 White Blood Count 13.6 x10^3/uL (4.0-11.0) Red Blood Count 2.93 x10^6/uL (3.50-5.40) Hemoglobin 9.0 g/dL (12.0-15.5) Hematocrit 27.1 % (36.0-47.0) Mean Corpuscular Volume 93 fL (79-100) Mean Corpuscular Hemoglobin 31 pg (25-35) Mean Corpuscular Hemoglobin Concent 33 g/dL (31-37) Red Cell Distribution Width 13.6 % (11.5-14.5) Platelet Count 250 x10^3/uL (140-400) Neutrophils (%) (Auto) 81 % (31-73) Lymphocytes (%) (Auto) 16 % (24-48) Monocytes (%) (Auto) 3 % (0-9) Eosinophils (%) (Auto) 0 % (0-3) Basophils (%) (Auto) 0 % (0-3) Neutrophils # (Auto) 11.1 x10^3/uL (1.8-7.7) Lymphocytes # (Auto) 2.1 x10^3/uL (1.0-4.8) Monocytes # (Auto) 0.3 x10^3/uL (0.0-1.1) Eosinophils # (Auto) 0.0 x10^3/uL (0.0-0.7) Basophils # (Auto) 0.0 x10^3/uL (0.0-0.2) Allergies: Coded Allergies: Penicillins (Verified Allergy, Mild, RESH, 12/22/13) Sulfa (Sulfonamide Antibiotics) (Verified Allergy, Mild, RASH, 12/22/13) latex (Verified Allergy, Mild, RASH, 12/22/13) Medications: Current Medications Medications (Trade) Dose Ordered Sig/Clotilde Route PRN Reason Start Time Stop Time Status Last Admin Dose Admin Sodium Chloride 1,000 ml @ 1,000 mls/hr 1X ONCE IV 02/15/21 11:15 02/15/21 12:14 DC 02/15/21 11:00 Pantoprazole Sodium (PROTONIX VIAL for IV PUSH) 40 mg DAILY07 IVP 02/15/21 14:00 02/15/21 14:36 Sodium Chloride 1,000 ml @ 80 mls/hr [id number] IV 02/15/21 13:15 02/15/21 13:15 Imaging: Imaging: CXR Impression: 1. No acute cardiopulmonary process. CT A/P IMPRESSION: 1. No acute abnormality in the abdomen or pelvis, within the limitation of noncontrast exam. 2. Apparent wall thickening of the right colon without significant fat stranding, findings may relate to underdistended lumen. Consider correlation with mild colitis. 3. Colonic diverticulosis without acute diverticulitis. 4. Other chronic/incidental findings, as described above. PE: GEN: NAD HEENT: Atraumatic, PERRL LUNGS: CTAB HEART: RRR ABD: NABS, S/ND/NT EXTREMITY: No edema SKIN: No rashes, no jaundice NEURO/PSYCH: A & O 3, occasionally tearful A/P: A/P: Weakness, dizziness, ?melena Anemia, elevated BUN, Hemoccult positive Abnormal CT - wall thickening of the right colon/?underdistention CRC screen - previous colonoscopy w/ Dr. Cramer H/o constipation Diverticulosis - noted on CT Chronic pain on NSAIDs Rapid COVID negative -- Agree w/ IV PPI. ?UGI bleeding considering significant NSAID use - consider EGD - will review w/ Dr. Bowen. She requests ice chips - okay for a few - NPO otherwise. Monitor for recurrent bleeding, monitor Hgb. Defer her questions re: chronic pain treatment to Dr. Alan. THEA CLEMENTS Feb 15, 2021 14:59
[2021-02-15] MEDS ORDERED: METO25TA4 PO (18:22)
[2021-02-15 19:00] VITALS: BP 125/50
[2021-02-15 23:00] VITALS: BP 166/52
[2021-02-16] VITALS (15 sets, daily range): BP systolic 116–161; BP diastolic 42–69
[2021-02-16] MEDS: IV NORMAL SALINE 1000ML BAG 1,000 ML IV SCH ×2 (02:50→14:15)
--- NOTE | 2021-02-16 06:45 | PDOC ---
[employer] PROGRESS NOTE Date of Service DOS: DATE: 02/16/21 TIME: 06:43 Chief Complaint Chief Complaint GI bleed suspect PUD vs gastric / vs duodenal ulcer sec to Advil Gastrointestinal hemorrhage, unspecified osteoarthritis STEPHIE suspect acute vasomotor nephropathy Near syncope, likely vasovagal near syncope Weakness with dizziness, multifactorial with acute blood loss , volume depletion History of Present Illness History of Present Illness 80 y/o female admitted through ER. 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 Awoke this morning, was very weak - almost couldn't stand. [place] dizzy, had the urge to stool. Passed a lot of black liquid/loose/watery stool. [place] terrible. No h/o anemia or GI bleeding. No reflux/heartburn but has been taking 2 Tums before bed x 4-5 months "just because." No dysphagia, n/v, change in appetite, or weight loss. Might have had some "stabbing" pain occasionally on right side. Takes some sort of laxative/stool softener daily for h/o constipation - good control. No previous EGD. "Spastic colon" on colonoscopy w/ Dr. Cramer >10 years ago. Might have had gallbladder removed but can't remember. No liver, pancreas, or PUD history. H/o fibromyalgia - takes Advil BID (morning and afternoon) and 2 Advil PM QHS. Recently tried magnesium for insomnia - took three instead of two last night. Vaccinated for COVID. Augustus present. Diaphoretic overnight. Hb with a large drop to 6.9. She has not had any more dark bowel movements but does have nausea and dry heaves. 2 units PRBC ordered and n.p.o. for EGD today. Vitals/I&O Vitals/I&O: Vital Signs Date Time Temp Pulse Resp B/P (MAP) Pulse Ox O2 Delivery O2 Flow Rate FiO2 02/16/21 03:00 99.6 89 20 161/54 (89) 100 Room Air 99.6 I & O 02/15/21 02/15/21 02/16/21 15:00 23:00 07:00 Intake Total 1000 ml Balance 1000 ml Physical Exam General: Alert, Oriented X3, Cooperative Abdomen: Normal bowel sounds, Soft, No hepatosplenomegaly Extremities: No clubbing, No cyanosis, No edema Skin: No breakdown, No significant lesion Labs Labs: Laboratory Tests Test 02/15/21 11:00 02/15/21 11:20 02/15/21 12:22 02/15/21 12:40 White Blood Count 15.2 x10^3/uL (4.0-11.0) Red Blood Count 3.06 x10^6/uL (3.50-5.40) Hemoglobin 9.3 g/dL (12.0-15.5) Hematocrit 28.2 % (36.0-47.0) Mean Corpuscular Volume 92 fL (79-100) Mean Corpuscular Hemoglobin 30 pg (25-35) Mean Corpuscular Hemoglobin Concent 33 g/dL (31-37) Red Cell Distribution Width 13.9 % (11.5-14.5) Platelet Count 284 x10^3/uL (140-400) Neutrophils (%) (Auto) 79 % (31-73) Lymphocytes (%) (Auto) 18 % (24-48) Monocytes (%) (Auto) 4 % (0-9) Eosinophils (%) (Auto) 0 % (0-3) Basophils (%) (Auto) 0 % (0-3) Neutrophils # (Auto) 12.0 x10^3/uL (1.8-7.7) Lymphocytes # (Auto) 2.7 x10^3/uL (1.0-4.8) Monocytes # (Auto) 0.5 x10^3/uL (0.0-1.1) Eosinophils # (Auto) 0.0 x10^3/uL (0.0-0.7) Basophils # (Auto) 0.0 x10^3/uL (0.0-0.2) Prothrombin Time 13.1 SEC (11.7-14.0) Prothromb Time International Ratio 1.0 (0.8-1.1) Activated Partial Thromboplast Time 24 SEC (24-38) Sodium Level 142 mmol/L (136-145) Potassium Level 4.6 mmol/L (3.5-5.1) Chloride Level 105 mmol/L (98-107) Carbon Dioxide Level 27 mmol/L (21-32) Anion Gap 10 (6-14) Blood Urea Nitrogen 69 mg/dL (7-20) Creatinine 1.2 mg/dL (0.6-1.0) Estimated GFR (Cockcroft-Gault) 43.1 BUN/Creatinine Ratio 58 (6-20) Glucose Level 200 mg/dL (70-99) Calcium Level 8.8 mg/dL (8.5-10.1) Phosphorus Level 3.6 mg/dL (2.6-4.7) Magnesium Level 1.9 mg/dL (1.8-2.4) Total Bilirubin 0.2 mg/dL (0.2-1.0) Aspartate Amino Transf (AST/SGOT) 17 U/L (15-37) Alanine Aminotransferase (ALT/SGPT) 23 U/L (14-59) Alkaline Phosphatase 47 U/L (46-116) Creatine Kinase 53 U/L (26-192) Creatine Kinase MB (Mass) 0.8 ng/mL (0.0-3.6) Creatine Kinase MB Relative Index % (0-4) Troponin I Quantitative < 0.017 ng/mL (0.000-0.055) Total Protein 6.5 g/dL (6.4-8.2) Albumin 3.2 g/dL (3.4-5.0) Albumin/Globulin Ratio 1.0 (1.0-1.7) Stool Occult Blood Positive (NEG) Urine Collection Type Unknown Urine Color Yellow Urine Clarity Clear Urine pH 5.5 (<5.0-8.0) Urine Specific [place] 1.015 (1.000-1.030) Urine Protein Negative mg/dL (NEG-TRACE) Urine Glucose (UA) Negative mg/dL (NEG) Urine Ketones (Stick) Negative mg/dL (NEG) Urine Blood Negative (NEG) Urine Nitrite Negative (NEG) Urine Bilirubin Negative (NEG) Urine Urobilinogen Dipstick 0.2 mg/dL (0.2 mg/dL) Urine Leukocyte Esterase Negative (NEG) Urine RBC 0 /HPF (0-2) Urine WBC Occ /HPF (0-4) Urine Squamous Epithelial Cells Occ /LPF Urine Bacteria 0 /HPF (0-FEW) Urine Hyaline Casts Few /HPF SARS-CoV-2 Antigen (Rapid) Negative (NEGATIVE) Test 02/15/21 14:00 White Blood Count 13.6 x10^3/uL (4.0-11.0) Red Blood Count 2.93 x10^6/uL (3.50-5.40) Hemoglobin 9.0 g/dL (12.0-15.5) Hematocrit 27.1 % (36.0-47.0) Mean Corpuscular Volume 93 fL (79-100) Mean Corpuscular Hemoglobin 31 pg (25-35) Mean Corpuscular Hemoglobin Concent 33 g/dL (31-37) Red Cell Distribution Width 13.6 % (11.5-14.5) Platelet Count 250 x10^3/uL (140-400) Neutrophils (%) (Auto) 81 % (31-73) Lymphocytes (%) (Auto) 16 % (24-48) Monocytes (%) (Auto) 3 % (0-9) Eosinophils (%) (Auto) 0 % (0-3) Basophils (%) (Auto) 0 % (0-3) Neutrophils # (Auto) 11.1 x10^3/uL (1.8-7.7) Lymphocytes # (Auto) 2.1 x10^3/uL (1.0-4.8) Monocytes # (Auto) 0.3 x10^3/uL (0.0-1.1) Eosinophils # (Auto) 0.0 x10^3/uL (0.0-0.7) Basophils # (Auto) 0.0 x10^3/uL (0.0-0.2) Assessment and Plan Assessmemt and Plan Problems Medical Problems: (1) GI bleed Status: Acute (2) Near syncope Status: Acute (3) Weakness with dizziness Status: Acute Comment Review of Relevant I have reviewed the following items sharon (where applicable) has been applied. Medications: Current Medications Medications (Trade) Dose Ordered Sig/Clotilde Route PRN Reason Start Time Stop Time Status Last Admin Dose Admin Sodium Chloride 1,000 ml @ 1,000 mls/hr 1X ONCE IV 02/15/21 11:15 02/15/21 12:14 DC 02/15/21 11:00 Pantoprazole Sodium (PROTONIX VIAL for IV PUSH) 40 mg DAILY07 IVP 02/15/21 14:00 02/15/21 14:36 Sodium Chloride 1,000 ml @ 80 mls/hr [id number] IV 02/15/21 13:15 02/16/21 02:50 Justifications for Admission General Conditions Hemodynamically stable?: No Other Justification MILADY TIWARI MD Feb 16, 2021 06:45
[2021-02-16] MEDS ORDERED: MULTIVITAMIN I-VITE TABLET. PO SCH (07:00)
[2021-02-16 08:51] LABS: BASO % 1 % (0-3); EOS # 0.1 x10^3/uL (0.0-0.7); EOS % 1 % (0-3); LYMPH # 2.1 x10^3/uL (1.0-4.8); LYMPH % 35 % (24-48); MEAN CORPUSCULAR HEMOGLOBIN 31 pg (25-35); MEAN CORPUSCULAR HGB CONC 34 g/dL (31-37); MEAN CORPUSCULAR VOLUME 92 fL (79-100); MONO # 0.3 x10^3/uL (0.0-1.1); MONO % 5 % (0-9); NEUT # 3.5 x10^3/uL (1.8-7.7); NEUT % 58 % (31-73); PLATELET COUNT 196 x10^3/uL (140-400); RED BLOOD COUNT 2.18 x10^6/uL (3.50-5.40); RED CELL DISTRIBUTION WIDTH 14.2 % (11.5-14.5); WHITE BLOOD COUNT 6.1 x10^3/uL (4.0-11.0)
[2021-02-16] MEDS: CHOLECALCIFEROL (VITAMIN D3) 1,000 UNIT TABLET PO SCH (08:51)
[2021-02-16 09:04] LABS: CALCIUM 7.5 mg/dL (8.5-10.1); CREATININE 0.8 mg/dL (0.6-1.0); GFR 68.8; HEMOGLOBIN 6.9 g/dL (12.0-15.5); POTASSIUM 3.6 mmol/L (3.5-5.1)
[2021-02-16 09:16] LABS: ALBUMIN 2.6 g/dL (3.4-5.0); TOTAL BILIRUBIN 0.2 mg/dL (0.2-1.0); TOTAL PROTEIN 5.2 g/dL (6.4-8.2)
--- NOTE | 2021-02-16 10:17 | PDOC2 ---
CONSULT Date of Consult Date of Consult DATE: 02/16/21 TIME: 10:17 Reason for Consult Reason for Consult: STEPHIE Source Source: Chart review, Patient History of Present Illness Reason for Visit: Patient is a 80-year-old CF who presents to the emergency department reporting she felt weak and dizzy .She reports when she woke up she went directly to the bathroom and had a dark bowel movement. She was feeling very bad and terrible and was unable to walk without holding onto the steele . She was feeling dizzy and light headed , denies syncopal episode. She also reports significant lower abdominal pain when she woke up which resolved after her bowel movement. Denies chest pain or shortness of breath. Denies any F/C. No Urinary complaints, No Hx of Renal calculus or UTI. Denies any LE edema. No Dx of HTN or DM She reports she has Dx of Fibromyalgia and Spastic Colon . She was on a med Chlor/Clind for many years in the past - but could not afford 800 $ /prescription. She was switched to OTC [place] She reports taking Advil 4 tabs /day for many years . No past Dx of STEPHIE or CKD Past Medical History Cardiovascular: Hyperlipidemia Musculoskeletal: Osteoarthritis Infectious disease: No pertinent hx ENT: No pertinent hx Renal/: No pertinent hx Endocrine: No pertinent hx Family History Family History Non Contributory No Renal history Family History: Diabetes Social History Social History: Grandparents Quit (51 years ago when she was born again) ALCOHOL: none Drugs: None Current Problem List Problem List Problems Medical Problems: (1) GI bleed Status: Acute (2) Near syncope Status: Acute (3) Weakness with dizziness Status: Acute Current Medications Current Medications Current Medications Sodium Chloride 1,000 ml @ 1,000 mls/hr 1X ONCE IV Last administered on 02/15/21at 11:00; Start 02/15/21 at 11:15; Stop 02/15/21 at 12:14; Status DC Pantoprazole Sodium (PROTONIX VIAL for IV PUSH) 40 mg DAILY07 IVP Last administered on 02/15/21at 14:36; Start 02/15/21 at 14:00 Sodium Chloride (Normal Saline Flush) 3 ml QSHIFT PRN IV AFTER MEDS AND BLOOD DRAWS; Start 02/15/21 at 13:15 Sodium Chloride 1,000 ml @ 80 mls/hr [id number] IV Last administered on 02/16/21at 02:50; Start 02/15/21 at 13:15 Ondansetron HCl (Zofran) 4 mg PRN Q4HRS PRN IV NAUSEA/VOMITING; Start 02/15/21 at 13:15 Acetaminophen (Tylenol Supp) 650 mg PRN Q4HRS PRN OR TEMP OVER 100.4F OR MILD PAIN; Start 02/15/21 at 13:15 Docusate Sodium (Colace) 100 mg PRN BID PRN PO HARD STOOLS; Start 02/15/21 at 13:15 Albuterol Sulfate (Ventolin Neb Soln) 2.5 mg PRN Q4HRS PRN NEB SHORTNESS OF BREATH; Start 02/15/21 at 13:15 Guaifenesin (Robitussin) 200 mg PRN Q4HRS PRN PO COUGH; Start 02/15/21 at 13:15 Multivitamins/ Minerals (I-Andrew) 1 tab DAILY07 PO ; Start 02/16/21 at 07:00 Vitamin D (Vitamin D3) 1,000 unit DAILY PO ; Start 02/16/21 at 09:00 Active Scripts Active Reported Metoprolol Tartrate 25 Mg Tablet 25 Mg PO BID Diazepam 5 Mg Tablet 1 Tab PO BID Ocuvite Tablet (Vit A,C & E/Lutein/Minerals) 1 Each Tablet 1 Each PO Glucosamine (Glucosamine Sulfate 2KCL) 1,000 Mg Tablet 1,000 Mg PO Allergies Allergies: Coded Allergies: Penicillins (Verified Allergy, Intermediate, Rash, 02/16/21) Sulfa (Sulfonamide Antibiotics) (Verified Allergy, Intermediate, RASH, 02/16/21) latex (Verified Allergy, Intermediate, RASH, 02/16/21) ROS Review of System As per HPI, rest of the ROS is negative Physical Exam Physical Exam General NAD HEEN OM moist Neck supple Lungs CTA, Non labored CV RRR Abd Soft, NT, BS + N Almanzar, Dai CVA or SP tenderness Neuro grossly Normal Derm No Rash Psych Very pleasant , Cooperative Vital Signs Vital Signs Date Time Temp Pulse Resp B/P (MAP) Pulse Ox O2 Delivery O2 Flow Rate FiO2 02/16/21 07:00 98.4 84 19 121/50 (73) 97 Room Air 98.4 Assessment & Plan STEPHIE- vasomotor - Resolved . UA unremarkable (no micr hematuria or UTI ) ; CT scan Unremarkable Kidneys Supportive care, Avoid nephrotoxins (Including NSAID's), Maintain hydration Long use of NSAID's- Recommend against it GI bleed - suspect PUD vs gastric / vs duodenal ulcer . Scheduled for EGD today per GI Anemia- Drop in Hgb Spastic Colon per patient Fibromyalgia- takes Advil Labs Labs Laboratory Tests Test 02/15/21 11:00 02/15/21 11:20 02/15/21 12:22 02/15/21 12:40 White Blood Count 15.2 x10^3/uL (4.0-11.0) Red Blood Count 3.06 x10^6/uL (3.50-5.40) Hemoglobin 9.3 g/dL (12.0-15.5) Hematocrit 28.2 % (36.0-47.0) Mean Corpuscular Volume 92 fL (79-100) Mean Corpuscular Hemoglobin 30 pg (25-35) Mean Corpuscular Hemoglobin Concent 33 g/dL (31-37) Red Cell Distribution Width 13.9 % (11.5-14.5) Platelet Count 284 x10^3/uL (140-400) Neutrophils (%) (Auto) 79 % (31-73) Lymphocytes (%) (Auto) 18 % (24-48) Monocytes (%) (Auto) 4 % (0-9) Eosinophils (%) (Auto) 0 % (0-3) Basophils (%) (Auto) 0 % (0-3) Neutrophils # (Auto) 12.0 x10^3/uL (1.8-7.7) Lymphocytes # (Auto) 2.7 x10^3/uL (1.0-4.8) Monocytes # (Auto) 0.5 x10^3/uL (0.0-1.1) Eosinophils # (Auto) 0.0 x10^3/uL (0.0-0.7) Basophils # (Auto) 0.0 x10^3/uL (0.0-0.2) Prothrombin Time 13.1 SEC (11.7-14.0) Prothromb Time International Ratio 1.0 (0.8-1.1) Activated Partial Thromboplast Time 24 SEC (24-38) Sodium Level 142 mmol/L (136-145) Potassium Level 4.6 mmol/L (3.5-5.1) Chloride Level 105 mmol/L (98-107) Carbon Dioxide Level 27 mmol/L (21-32) Anion Gap 10 (6-14) Blood Urea Nitrogen 69 mg/dL (7-20) Creatinine 1.2 mg/dL (0.6-1.0) Estimated GFR (Cockcroft-Gault) 43.1 BUN/Creatinine Ratio 58 (6-20) Glucose Level 200 mg/dL (70-99) Calcium Level 8.8 mg/dL (8.5-10.1) Phosphorus Level 3.6 mg/dL (2.6-4.7) Magnesium Level 1.9 mg/dL (1.8-2.4) Total Bilirubin 0.2 mg/dL (0.2-1.0) Aspartate Amino Transf (AST/SGOT) 17 U/L (15-37) Alanine Aminotransferase (ALT/SGPT) 23 U/L (14-59) Alkaline Phosphatase 47 U/L (46-116) Creatine Kinase 53 U/L (26-192) Creatine Kinase MB (Mass) 0.8 ng/mL (0.0-3.6) Creatine Kinase MB Relative Index % (0-4) Troponin I Quantitative < 0.017 ng/mL (0.000-0.055) Total Protein 6.5 g/dL (6.4-8.2) Albumin 3.2 g/dL (3.4-5.0) Albumin/Globulin Ratio 1.0 (1.0-1.7) Stool Occult Blood Positive (NEG) Urine Collection Type Unknown Urine Color Yellow Urine Clarity Clear Urine pH 5.5 (<5.0-8.0) Urine Specific [place] 1.015 (1.000-1.030) Urine Protein Negative mg/dL (NEG-TRACE) Urine Glucose (UA) Negative mg/dL (NEG) Urine Ketones (Stick) Negative mg/dL (NEG) Urine Blood Negative (NEG) Urine Nitrite Negative (NEG) Urine Bilirubin Negative (NEG) Urine Urobilinogen Dipstick 0.2 mg/dL (0.2 mg/dL) Urine Leukocyte Esterase Negative (NEG) Urine RBC 0 /HPF (0-2) Urine WBC Occ /HPF (0-4) Urine Squamous Epithelial Cells Occ /LPF Urine Bacteria 0 /HPF (0-FEW) Urine Hyaline Casts Few /HPF SARS-CoV-2 RNA (ARNALDO) Negative (Negative) SARS-CoV-2 Antigen (Rapid) Negative (NEGATIVE) Test 02/15/21 14:00 02/16/21 08:00 White Blood Count 13.6 x10^3/uL (4.0-11.0) 6.1 x10^3/uL (4.0-11.0) Red Blood Count 2.93 x10^6/uL (3.50-5.40) 2.18 x10^6/uL (3.50-5.40) Hemoglobin 9.0 g/dL (12.0-15.5) 6.9 g/dL (12.0-15.5) Hematocrit 27.1 % (36.0-47.0) 20.0 % (36.0-47.0) Mean Corpuscular Volume 93 fL (79-100) 92 fL (79-100) Mean Corpuscular Hemoglobin 31 pg (25-35) 31 pg (25-35) Mean Corpuscular Hemoglobin Concent 33 g/dL (31-37) 34 g/dL (31-37) Red Cell Distribution Width 13.6 % (11.5-14.5) 14.2 % (11.5-14.5) Platelet Count 250 x10^3/uL (140-400) 196 x10^3/uL (140-400) Neutrophils (%) (Auto) 81 % (31-73) 58 % (31-73) Lymphocytes (%) (Auto) 16 % (24-48) 35 % (24-48) Monocytes (%) (Auto) 3 % (0-9) 5 % (0-9) Eosinophils (%) (Auto) 0 % (0-3) 1 % (0-3) Basophils (%) (Auto) 0 % (0-3) 1 % (0-3) Neutrophils # (Auto) 11.1 x10^3/uL (1.8-7.7) 3.5 x10^3/uL (1.8-7.7) Lymphocytes # (Auto) 2.1 x10^3/uL (1.0-4.8) 2.1 x10^3/uL (1.0-4.8) Monocytes # (Auto) 0.3 x10^3/uL (0.0-1.1) 0.3 x10^3/uL (0.0-1.1) Eosinophils # (Auto) 0.0 x10^3/uL (0.0-0.7) 0.1 x10^3/uL (0.0-0.7) Basophils # (Auto) 0.0 x10^3/uL (0.0-0.2) 0.0 x10^3/uL (0.0-0.2) Sodium Level 145 mmol/L (136-145) Potassium Level 3.6 mmol/L (3.5-5.1) Chloride Level 112 mmol/L (98-107) Carbon Dioxide Level 24 mmol/L (21-32) Anion Gap 9 (6-14) Blood Urea Nitrogen 33 mg/dL (7-20) Creatinine 0.8 mg/dL (0.6-1.0) Estimated GFR (Cockcroft-Gault) 68.8 BUN/Creatinine Ratio 41 (6-20) Glucose Level 87 mg/dL (70-99) Calcium Level 7.5 mg/dL (8.5-10.1) Total Bilirubin 0.2 mg/dL (0.2-1.0) Aspartate Amino Transf (AST/SGOT) 19 U/L (15-37) Alanine Aminotransferase (ALT/SGPT) 17 U/L (14-59) Alkaline Phosphatase 33 U/L (46-116) Total Protein 5.2 g/dL (6.4-8.2) Albumin 2.6 g/dL (3.4-5.0) Albumin/Globulin Ratio 1.0 (1.0-1.7) Laboratory Tests Test 02/15/21 11:00 02/15/21 11:20 02/15/21 12:22 02/15/21 12:40 White Blood Count 15.2 x10^3/uL (4.0-11.0) Red Blood Count 3.06 x10^6/uL (3.50-5.40) Hemoglobin 9.3 g/dL (12.0-15.5) Hematocrit 28.2 % (36.0-47.0) Mean Corpuscular Volume 92 fL (79-100) Mean Corpuscular Hemoglobin 30 pg (25-35) Mean Corpuscular Hemoglobin Concent 33 g/dL (31-37) Red Cell Distribution Width 13.9 % (11.5-14.5) Platelet Count 284 x10^3/uL (140-400) Neutrophils (%) (Auto) 79 % (31-73) Lymphocytes (%) (Auto) 18 % (24-48) Monocytes (%) (Auto) 4 % (0-9) Eosinophils (%) (Auto) 0 % (0-3) Basophils (%) (Auto) 0 % (0-3) Neutrophils # (Auto) 12.0 x10^3/uL (1.8-7.7) Lymphocytes # (Auto) 2.7 x10^3/uL (1.0-4.8) Monocytes # (Auto) 0.5 x10^3/uL (0.0-1.1) Eosinophils # (Auto) 0.0 x10^3/uL (0.0-0.7) Basophils # (Auto) 0.0 x10^3/uL (0.0-0.2) Prothrombin Time 13.1 SEC (11.7-14.0) Prothromb Time International Ratio 1.0 (0.8-1.1) Activated Partial Thromboplast Time 24 SEC (24-38) Sodium Level 142 mmol/L (136-145) Potassium Level 4.6 mmol/L (3.5-5.1) Chloride Level 105 mmol/L (98-107) Carbon Dioxide Level 27 mmol/L (21-32) Anion Gap 10 (6-14) Blood Urea Nitrogen 69 mg/dL (7-20) Creatinine 1.2 mg/dL (0.6-1.0) Estimated GFR (Cockcroft-Gault) 43.1 BUN/Creatinine Ratio 58 (6-20) Glucose Level 200 mg/dL (70-99) Calcium Level 8.8 mg/dL (8.5-10.1) Phosphorus Level 3.6 mg/dL (2.6-4.7) Magnesium Level 1.9 mg/dL (1.8-2.4) Total Bilirubin 0.2 mg/dL (0.2-1.0) Aspartate Amino Transf (AST/SGOT) 17 U/L (15-37) Alanine Aminotransferase (ALT/SGPT) 23 U/L (14-59) Alkaline Phosphatase 47 U/L (46-116) Creatine Kinase 53 U/L (26-192) Creatine Kinase MB (Mass) 0.8 ng/mL (0.0-3.6) Creatine Kinase MB Relative Index % (0-4) Troponin I Quantitative < 0.017 ng/mL (0.000-0.055) Total Protein 6.5 g/dL (6.4-8.2) Albumin 3.2 g/dL (3.4-5.0) Albumin/Globulin Ratio 1.0 (1.0-1.7) Stool Occult Blood Positive (NEG) Urine Collection Type Unknown Urine Color Yellow Urine Clarity Clear Urine pH 5.5 (<5.0-8.0) Urine Specific [place] 1.015 (1.000-1.030) Urine Protein Negative mg/dL (NEG-TRACE) Urine Glucose (UA) Negative mg/dL (NEG) Urine Ketones (Stick) Negative mg/dL (NEG) Urine Blood Negative (NEG) Urine Nitrite Negative (NEG) Urine Bilirubin Negative (NEG) Urine Urobilinogen Dipstick 0.2 mg/dL (0.2 mg/dL) Urine Leukocyte Esterase Negative (NEG) Urine RBC 0 /HPF (0-2) Urine WBC Occ /HPF (0-4) Urine Squamous Epithelial Cells Occ /LPF Urine Bacteria 0 /HPF (0-FEW) Urine Hyaline Casts Few /HPF SARS-CoV-2 RNA (ARNALDO) Negative (Negative) SARS-CoV-2 Antigen (Rapid) Negative (NEGATIVE) Test 02/15/21 14:00 02/16/21 08:00 White Blood Count 13.6 x10^3/uL (4.0-11.0) 6.1 x10^3/uL (4.0-11.0) Red Blood Count 2.93 x10^6/uL (3.50-5.40) 2.18 x10^6/uL (3.50-5.40) Hemoglobin 9.0 g/dL (12.0-15.5) 6.9 g/dL (12.0-15.5) Hematocrit 27.1 % (36.0-47.0) 20.0 % (36.0-47.0) Mean Corpuscular Volume 93 fL (79-100) 92 fL (79-100) Mean Corpuscular Hemoglobin 31 pg (25-35) 31 pg (25-35) Mean Corpuscular Hemoglobin Concent 33 g/dL (31-37) 34 g/dL (31-37) Red Cell Distribution Width 13.6 % (11.5-14.5) 14.2 % (11.5-14.5) Platelet Count 250 x10^3/uL (140-400) 196 x10^3/uL (140-400) Neutrophils (%) (Auto) 81 % (31-73) 58 % (31-73) Lymphocytes (%) (Auto) 16 % (24-48) 35 % (24-48) Monocytes (%) (Auto) 3 % (0-9) 5 % (0-9) Eosinophils (%) (Auto) 0 % (0-3) 1 % (0-3) Basophils (%) (Auto) 0 % (0-3) 1 % (0-3) Neutrophils # (Auto) 11.1 x10^3/uL (1.8-7.7) 3.5 x10^3/uL (1.8-7.7) Lymphocytes # (Auto) 2.1 x10^3/uL (1.0-4.8) 2.1 x10^3/uL (1.0-4.8) Monocytes # (Auto) 0.3 x10^3/uL (0.0-1.1) 0.3 x10^3/uL (0.0-1.1) Eosinophils # (Auto) 0.0 x10^3/uL (0.0-0.7) 0.1 x10^3/uL (0.0-0.7) Basophils # (Auto) 0.0 x10^3/uL (0.0-0.2) 0.0 x10^3/uL (0.0-0.2) Sodium Level 145 mmol/L (136-145) Potassium Level 3.6 mmol/L (3.5-5.1) Chloride Level 112 mmol/L (98-107) Carbon Dioxide Level 24 mmol/L (21-32) Anion Gap 9 (6-14) Blood Urea Nitrogen 33 mg/dL (7-20) Creatinine 0.8 mg/dL (0.6-1.0) Estimated GFR (Cockcroft-Gault) 68.8 BUN/Creatinine Ratio 41 (6-20) Glucose Level 87 mg/dL (70-99) Calcium Level 7.5 mg/dL (8.5-10.1) Total Bilirubin 0.2 mg/dL (0.2-1.0) Aspartate Amino Transf (AST/SGOT) 19 U/L (15-37) Alanine Aminotransferase (ALT/SGPT) 17 U/L (14-59) Alkaline Phosphatase 33 U/L (46-116) Total Protein 5.2 g/dL (6.4-8.2) Albumin 2.6 g/dL (3.4-5.0) Albumin/Globulin Ratio 1.0 (1.0-1.7) Review All relevant outside records, renal labs, imaging studies, telemetry/EKG's were reviewed. Images Images CT abdomen and pelvis without IV contrast. INDICATION:80 years, Female, near syncope, occult blood in stool. Abdominal pain. TECHNIQUE: Axial CT images of the abdomen and pelvis were obtained. Coronal and sagittal reformatted performed. COMPARISON: Lumbar spine radiograph dated 12/24/2013. Exposure: One or more of the following individualized dose reduction techniques were utilized for this examination: 1. Automated exposure control 2. Adjustment of the mA and/or kV according to patient size 3. Use of iterative reconstruction technique. FINDINGS: LOWER CHEST: Left basilar subsegmental atelectasis. ABDOMEN/PELVIS: Within the limitation of noncontrast exam, Normal size and morphology of the liver. Two fluid density lesions in the left hepatic lobe, the largest measures 2.7 cm, likely representing simple cysts. Unremarkable gallbladder, biliary ducts, spleen and pancreas. No adrenal nodule. No hydronephrosis or nephrolithiasis in either kidney. Nonspecific bilateral perinephric fat stranding. No bowel obstruction. Apparent wall thickening of the right colon without significant adjacent fat stranding. Colonic diverticulosis. Appendix is not seen with certainty. Moderate aortoiliac atherosclerotic calcifications without dilatation. No pneumoperitoneum or ascites. No lymphadenopathy in the abdomen or pelvis by size criteria. No suspicious pelvic masses. Underdistended urinary bladder which limits evaluation. Unremarkable uterus. MUSCULOSKELETAL: Grade 1 anterolisthesis of L5 over S1 with severe degenerative changes, unchanged since 2014. Mild compression deformity of T12 vertebral body, unchanged since 2014. Diffuse osteopenia. IMPRESSION: 1. No acute abnormality in the abdomen or pelvis, within the limitation of noncontrast exam. 2. Apparent wall thickening of the right colon without significant fat stranding, findings may relate to underdistended lumen. Consider correlation with mild colitis. 3. Colonic diverticulosis without acute diverticulitis. 4. Other chronic/incidental findings, as described above. MARÍA MCNALLY MD Feb 16, 2021 10:17
[2021-02-16] MEDS ORDERED: IV RINGERS,LACTATED 1000ML 1,000 ML IV SCH (11:00)
[2021-02-16] MEDS: PANTOPRAZOLE IV PUSH 40 MG VIAL. IVP SCH (11:23)
--- NOTE | 2021-02-16 11:56 | NUR ---
SW following. Discussed with RN, pt from home with , room air, NPO. PT/OT ordered, Rapid COVID-19 negative. EGD today. RN advised no SW needs at this time. SW will continue to follow.
[2021-02-16] MEDS ORDERED: LIDOCAINE 2% PF 5 ML VIAL. ONE (13:02)
[2021-02-16] MEDS ORDERED: PROPOFOL 10 MG/ML (20ML) VIAL. IV ONE (13:02)
--- NOTE | 2021-02-16 13:29 | PDOC4 ---
PROCEDURE Procedure EGD/biopsies, clipping. Indication: melena, acute anemia. Meds: per anesthesia Findings: E--Normal, GEJ at 39cm. G--4-5mm ulcer pre-pyloric w/o signs of bleeding. Biopsied. D--4-5mm ulcer at junction of bulb and second portion; some "oozing" of blood. Clipped x 2 and no more fresh blood. Julisa. well. IMP: , not bleeding, biopsied. DU, location favors NSAID as cause, clipped. REC: OK to have clears. Continue PPI IV. If remains stable tomorrow, advance diet and PO PPI. Await biopsies. JOEY GARCES MD Feb 16, 2021 13:29
[2021-02-16 14:27] LABS: BASO # 0.1 x10^3/uL (0.0-0.2); BASO % 1 % (0-3); EOS # 0.1 x10^3/uL (0.0-0.7); EOS % 1 % (0-3); HEMATOCRIT 22.3 % (36.0-47.0); HEMOGLOBIN 7.3 g/dL (12.0-15.5); LYMPH # 2.7 x10^3/uL (1.0-4.8); LYMPH % 41 % (24-48); MEAN CORPUSCULAR HEMOGLOBIN 31 pg (25-35); MEAN CORPUSCULAR HGB CONC 33 g/dL (31-37); MEAN CORPUSCULAR VOLUME 94 fL (79-100); MONO # 0.4 x10^3/uL (0.0-1.1); MONO % 5 % (0-9); NEUT # 3.5 x10^3/uL (1.8-7.7); NEUT % 52 % (31-73); PLATELET COUNT 225 x10^3/uL (140-400); RED BLOOD COUNT 2.38 x10^6/uL (3.50-5.40); RED CELL DISTRIBUTION WIDTH 14.3 % (11.5-14.5); WHITE BLOOD COUNT 6.8 x10^3/uL (4.0-11.0)
[2021-02-17 00:11] VITALS: BP 129/64
[2021-02-17] MEDS: IV NORMAL SALINE 1000ML BAG 1,000 ML IV SCH ×2 (02:55→12:43)
[2021-02-17 04:45] LABS: BASO % 1 % (0-3); EOS # 0.2 x10^3/uL (0.0-0.7); EOS % 3 % (0-3); HEMATOCRIT 28.6 % (36.0-47.0); HEMOGLOBIN 9.9 g/dL (12.0-15.5); LYMPH # 2.7 x10^3/uL (1.0-4.8); LYMPH % 39 % (24-48); MEAN CORPUSCULAR HEMOGLOBIN 31 pg (25-35); MEAN CORPUSCULAR HGB CONC 35 g/dL (31-37); MEAN CORPUSCULAR VOLUME 90 fL (79-100); MONO # 0.4 x10^3/uL (0.0-1.1); MONO % 5 % (0-9); NEUT # 3.7 x10^3/uL (1.8-7.7); NEUT % 53 % (31-73); PLATELET COUNT 199 x10^3/uL (140-400); RED BLOOD COUNT 3.17 x10^6/uL (3.50-5.40); WHITE BLOOD COUNT 7.1 x10^3/uL (4.0-11.0)
[2021-02-17] MEDS: PANTOPRAZOLE IV PUSH 40 MG VIAL. IVP SCH (05:01)
[2021-02-17 07:00] VITALS: BP 131/56
[2021-02-17] MEDS: MULTIVITAMIN I-VITE TABLET. PO SCH (08:51)
[2021-02-17] MEDS: CHOLECALCIFEROL (VITAMIN D3) 1,000 UNIT TABLET PO SCH (08:51)
[2021-02-17 11:00] VITALS: BP 154/61
--- NOTE | 2021-02-17 12:07 | PDOC ---
[employer] PROGRESS NOTE Date of Service DOS: DATE: 02/17/21 TIME: 12:07 Chief Complaint Chief Complaint GI bleed suspect PUD vs gastric / vs duodenal ulcer sec to Advil Gastrointestinal hemorrhage, unspecified osteoarthritis STEPHIE suspect acute vasomotor nephropathy Near syncope, likely vasovagal near syncope Weakness with dizziness, multifactorial with acute blood loss , volume depletion History of Present Illness History of Present Illness 80 y/o female admitted through ER. Might have felt a little funny before bed last night, possibly because it was a little director vaccine their house. Awoke this morning, was very weak - almost couldn't stand. [place] dizzy, had the urge to stool. Passed a lot of black liquid/loose/watery stool. [place] terrible. No h/o anemia or GI bleeding. No reflux/heartburn but has been taking 2 Tums before bed x 4-5 months "just because." No dysphagia, n/v, change in appetite, or weight loss. Might have had some "stabbing" pain occasionally on right side. Takes some sort of laxative/stool softener daily for h/o constipation - good control. No previous EGD. "Spastic colon" on colonoscopy w/ Dr. Cramer >10 years ago. Might have had gallbladder removed but can't remember. No liver, pancreas, or PUD history. H/o fibromyalgia - takes Advil BID (morning and afternoon) and 2 Advil PM QHS. Recently tried magnesium for insomnia - took three instead of two last night. Vaccinated for COVID. Augustus present. 02/16: Diaphoretic overnight. Hb with a large drop to 6.9. She has not had any more dark bowel movements but does have nausea and dry heaves. 2 units PRBC ordered and n.p.o. To EGD with duodenal ulcer clipped x2 and advance to clears IV PPI. Hb up to 9.9, CR down to 0.8 BUN 33. Wants sleep aid and something for fibromyalgia pain, offered trazodone. Vitals/I&O Vitals/I&O: Vital Signs Date Time Temp Pulse Resp B/P (MAP) Pulse Ox O2 Delivery O2 Flow Rate FiO2 02/17/21 07:00 98.0 72 18 131/56 (81) Room Air 98.0 02/16/21 23:00 97 2.0 I & O 02/16/21 02/16/21 02/17/21 15:00 23:00 07:00 Intake Total 100 ml 1108 ml 50 ml Balance 100 ml 1108 ml 50 ml Physical Exam General: Alert, Oriented X3, Cooperative Abdomen: Normal bowel sounds, Soft, No hepatosplenomegaly Extremities: No clubbing, No cyanosis, No edema Skin: No breakdown, No significant lesion Labs Labs: Laboratory Tests Test 02/16/21 14:20 02/17/21 04:30 White Blood Count 6.8 x10^3/uL (4.0-11.0) 7.1 x10^3/uL (4.0-11.0) Red Blood Count 2.38 x10^6/uL (3.50-5.40) 3.17 x10^6/uL (3.50-5.40) Hemoglobin 7.3 g/dL (12.0-15.5) 9.9 g/dL (12.0-15.5) Hematocrit 22.3 % (36.0-47.0) 28.6 % (36.0-47.0) Mean Corpuscular Volume 94 fL (79-100) 90 fL (79-100) Mean Corpuscular Hemoglobin 31 pg (25-35) 31 pg (25-35) Mean Corpuscular Hemoglobin Concent 33 g/dL (31-37) 35 g/dL (31-37) Red Cell Distribution Width 14.3 % (11.5-14.5) 15.0 % (11.5-14.5) Platelet Count 225 x10^3/uL (140-400) 199 x10^3/uL (140-400) Neutrophils (%) (Auto) 52 % (31-73) 53 % (31-73) Lymphocytes (%) (Auto) 41 % (24-48) 39 % (24-48) Monocytes (%) (Auto) 5 % (0-9) 5 % (0-9) Eosinophils (%) (Auto) 1 % (0-3) 3 % (0-3) Basophils (%) (Auto) 1 % (0-3) 1 % (0-3) Neutrophils # (Auto) 3.5 x10^3/uL (1.8-7.7) 3.7 x10^3/uL (1.8-7.7) Lymphocytes # (Auto) 2.7 x10^3/uL (1.0-4.8) 2.7 x10^3/uL (1.0-4.8) Monocytes # (Auto) 0.4 x10^3/uL (0.0-1.1) 0.4 x10^3/uL (0.0-1.1) Eosinophils # (Auto) 0.1 x10^3/uL (0.0-0.7) 0.2 x10^3/uL (0.0-0.7) Basophils # (Auto) 0.1 x10^3/uL (0.0-0.2) 0.0 x10^3/uL (0.0-0.2) Assessment and Plan Assessmemt and Plan Problems Medical Problems: (1) GI bleed Status: Acute (2) Near syncope Status: Acute (3) Weakness with dizziness Status: Acute Comment Review of Relevant I have reviewed the following items sharon (where applicable) has been applied. Medications: Current Medications Medications (Trade) Dose Ordered Sig/Clotilde Route PRN Reason Start Time Stop Time Status Last Admin Dose Admin Multivitamins/ Minerals (I-Andrew) 1 tab DAILY PO 02/17/21 09:00 02/17/21 08:51 Justifications for Admission General Conditions Hemodynamically stable?: No Other Justification MILADY TIWARI MD Feb 17, 2021 12:07
--- NOTE | 2021-02-17 12:37 | PDOC ---
G I PROGRESS NOTE Subjective Feeling much better. No real complaints of GI nature. Objective No reports of any overt bleeding. Physical Exam Lungs clear anteriorly. RRR Abdomen soft, not tender nor distended. Review of Relevant I have reviewed the following items sharon (where applicable) has been applied. Labs Laboratory Tests Test 02/15/21 12:40 02/15/21 14:00 02/16/21 08:00 02/16/21 14:20 SARS-CoV-2 RNA (ARNALDO) Negative (Negative) SARS-CoV-2 Antigen (Rapid) Negative (NEGATIVE) White Blood Count 13.6 x10^3/uL (4.0-11.0) 6.1 x10^3/uL (4.0-11.0) 6.8 x10^3/uL (4.0-11.0) Red Blood Count 2.93 x10^6/uL (3.50-5.40) 2.18 x10^6/uL (3.50-5.40) 2.38 x10^6/uL (3.50-5.40) Hemoglobin 9.0 g/dL (12.0-15.5) 6.9 g/dL (12.0-15.5) 7.3 g/dL (12.0-15.5) Hematocrit 27.1 % (36.0-47.0) 20.0 % (36.0-47.0) 22.3 % (36.0-47.0) Mean Corpuscular Volume 93 fL (79-100) 92 fL (79-100) 94 fL (79-100) Mean Corpuscular Hemoglobin 31 pg (25-35) 31 pg (25-35) 31 pg (25-35) Mean Corpuscular Hemoglobin Concent 33 g/dL (31-37) 34 g/dL (31-37) 33 g/dL (31-37) Red Cell Distribution Width 13.6 % (11.5-14.5) 14.2 % (11.5-14.5) 14.3 % (11.5-14.5) Platelet Count 250 x10^3/uL (140-400) 196 x10^3/uL (140-400) 225 x10^3/uL (140-400) Neutrophils (%) (Auto) 81 % (31-73) 58 % (31-73) 52 % (31-73) Lymphocytes (%) (Auto) 16 % (24-48) 35 % (24-48) 41 % (24-48) Monocytes (%) (Auto) 3 % (0-9) 5 % (0-9) 5 % (0-9) Eosinophils (%) (Auto) 0 % (0-3) 1 % (0-3) 1 % (0-3) Basophils (%) (Auto) 0 % (0-3) 1 % (0-3) 1 % (0-3) Neutrophils # (Auto) 11.1 x10^3/uL (1.8-7.7) 3.5 x10^3/uL (1.8-7.7) 3.5 x10^3/uL (1.8-7.7) Lymphocytes # (Auto) 2.1 x10^3/uL (1.0-4.8) 2.1 x10^3/uL (1.0-4.8) 2.7 x10^3/uL (1.0-4.8) Monocytes # (Auto) 0.3 x10^3/uL (0.0-1.1) 0.3 x10^3/uL (0.0-1.1) 0.4 x10^3/uL (0.0-1.1) Eosinophils # (Auto) 0.0 x10^3/uL (0.0-0.7) 0.1 x10^3/uL (0.0-0.7) 0.1 x10^3/uL (0.0-0.7) Basophils # (Auto) 0.0 x10^3/uL (0.0-0.2) 0.0 x10^3/uL (0.0-0.2) 0.1 x10^3/uL (0.0-0.2) Sodium Level 145 mmol/L (136-145) Potassium Level 3.6 mmol/L (3.5-5.1) Chloride Level 112 mmol/L (98-107) Carbon Dioxide Level 24 mmol/L (21-32) Anion Gap 9 (6-14) Blood Urea Nitrogen 33 mg/dL (7-20) Creatinine 0.8 mg/dL (0.6-1.0) Estimated GFR (Cockcroft-Gault) 68.8 BUN/Creatinine Ratio 41 (6-20) Glucose Level 87 mg/dL (70-99) Calcium Level 7.5 mg/dL (8.5-10.1) Total Bilirubin 0.2 mg/dL (0.2-1.0) Aspartate Amino Transf (AST/SGOT) 19 U/L (15-37) Alanine Aminotransferase (ALT/SGPT) 17 U/L (14-59) Alkaline Phosphatase 33 U/L (46-116) Total Protein 5.2 g/dL (6.4-8.2) Albumin 2.6 g/dL (3.4-5.0) Albumin/Globulin Ratio 1.0 (1.0-1.7) Test 02/17/21 04:30 White Blood Count 7.1 x10^3/uL (4.0-11.0) Red Blood Count 3.17 x10^6/uL (3.50-5.40) Hemoglobin 9.9 g/dL (12.0-15.5) Hematocrit 28.6 % (36.0-47.0) Mean Corpuscular Volume 90 fL (79-100) Mean Corpuscular Hemoglobin 31 pg (25-35) Mean Corpuscular Hemoglobin Concent 35 g/dL (31-37) Red Cell Distribution Width 15.0 % (11.5-14.5) Platelet Count 199 x10^3/uL (140-400) Neutrophils (%) (Auto) 53 % (31-73) Lymphocytes (%) (Auto) 39 % (24-48) Monocytes (%) (Auto) 5 % (0-9) Eosinophils (%) (Auto) 3 % (0-3) Basophils (%) (Auto) 1 % (0-3) Neutrophils # (Auto) 3.7 x10^3/uL (1.8-7.7) Lymphocytes # (Auto) 2.7 x10^3/uL (1.0-4.8) Monocytes # (Auto) 0.4 x10^3/uL (0.0-1.1) Eosinophils # (Auto) 0.2 x10^3/uL (0.0-0.7) Basophils # (Auto) 0.0 x10^3/uL (0.0-0.2) Laboratory Tests Test 02/16/21 14:20 02/17/21 04:30 White Blood Count 6.8 x10^3/uL (4.0-11.0) 7.1 x10^3/uL (4.0-11.0) Red Blood Count 2.38 x10^6/uL (3.50-5.40) 3.17 x10^6/uL (3.50-5.40) Hemoglobin 7.3 g/dL (12.0-15.5) 9.9 g/dL (12.0-15.5) Hematocrit 22.3 % (36.0-47.0) 28.6 % (36.0-47.0) Mean Corpuscular Volume 94 fL (79-100) 90 fL (79-100) Mean Corpuscular Hemoglobin 31 pg (25-35) 31 pg (25-35) Mean Corpuscular Hemoglobin Concent 33 g/dL (31-37) 35 g/dL (31-37) Red Cell Distribution Width 14.3 % (11.5-14.5) 15.0 % (11.5-14.5) Platelet Count 225 x10^3/uL (140-400) 199 x10^3/uL (140-400) Neutrophils (%) (Auto) 52 % (31-73) 53 % (31-73) Lymphocytes (%) (Auto) 41 % (24-48) 39 % (24-48) Monocytes (%) (Auto) 5 % (0-9) 5 % (0-9) Eosinophils (%) (Auto) 1 % (0-3) 3 % (0-3) Basophils (%) (Auto) 1 % (0-3) 1 % (0-3) Neutrophils # (Auto) 3.5 x10^3/uL (1.8-7.7) 3.7 x10^3/uL (1.8-7.7) Lymphocytes # (Auto) 2.7 x10^3/uL (1.0-4.8) 2.7 x10^3/uL (1.0-4.8) Monocytes # (Auto) 0.4 x10^3/uL (0.0-1.1) 0.4 x10^3/uL (0.0-1.1) Eosinophils # (Auto) 0.1 x10^3/uL (0.0-0.7) 0.2 x10^3/uL (0.0-0.7) Basophils # (Auto) 0.1 x10^3/uL (0.0-0.2) 0.0 x10^3/uL (0.0-0.2) Hemoglobin up after transfusion. Vitals/I & O Vital Sign - Last 24 Hours 02/16/21 02/16/21 02/16/21 02/16/21 13:03 13:03 13:28 13:43 Temp 97.7 97.2 97.7 97.2 Pulse 78 88 89 Resp 18 20 20 B/P (MAP) 121/58 127/58 Pulse Ox 100 99 97 O2 Delivery Room Air Nasal Cannula Room Air O2 Flow Rate 2 02/16/21 02/16/21 02/16/21 02/16/21 13:58 15:05 15:21 16:15 Temp 97.5 97.6 99.2 97.5 97.6 99.2 Pulse 82 77 80 78 Resp 20 18 18 20 B/P (MAP) 145/65 141/58 126/56 122/47 Pulse Ox 97 O2 Delivery Room Air 02/16/21 02/16/21 02/16/21 02/16/21 17:15 18:15 19:00 19:57 Temp 97.9 98.1 99.3 97.3 97.9 98.1 99.3 97.3 Pulse 78 90 97 76 Resp 20 20 17 18 B/P (MAP) 128/49 116/42 122/62 (82) 124/60 Pulse Ox 98 O2 Delivery Room Air O2 Flow Rate 2.0 02/16/21 02/16/21 02/16/21 02/16/21 20:00 20:19 21:36 22:36 Temp 97.9 98.0 98.3 97.9 98.0 98.3 Pulse 74 67 68 Resp 16 16 18 B/P (MAP) 139/69 124/51 131/60 O2 Delivery Room Air 02/16/21 02/17/21 02/17/21 02/17/21 23:00 00:11 03:00 07:00 Temp 99.0 97.7 98.0 99.0 97.7 98.0 Pulse 78 74 72 72 Resp 18 18 17 18 B/P (MAP) 146/60 (88) 129/64 131/56 (81) Pulse Ox 97 O2 Delivery Room Air Room Air Room Air O2 Flow Rate 2.0 02/17/21 11:00 Temp 97.5 97.5 Pulse 79 Resp 18 B/P (MAP) 154/61 (92) O2 Delivery Room Air Intake and Output 02/16/21 02/16/21 02/17/21 15:00 23:00 07:00 Intake Total 100 ml 1108 ml 50 ml Balance 100 ml 1108 ml 50 ml Problem List Problems Medical Problems: (1) GI bleed Status: Acute (2) Near syncope Status: Acute (3) Weakness with dizziness Status: Acute Assessment DU/--seems stable w/o ongoing bleeding. Plan of Care Note PO PPI and advance diet. Home in AM OK with me if tolerated. On PPI for at least 4-6 weeks, chronically if continues NSAID use. Await biopsies. F/u with me in 3-4 weeks re: biopsies. Justicifation of Admission Dx: Justifications for Admission: Justification of Admission Dx: N/A JOEY GARCES MD Feb 17, 2021 12:37
--- NOTE | 2021-02-17 14:22 | PDOC ---
DATE OF SERVICE DATE: 02/17/21 TIME: 14:22 SUBJECTIVE ROS Stable, No SOB Has Chr Fibromyalgia pain OBJECTIVE Vital Signs Vital Signs Date Time Temp Pulse Resp B/P (MAP) Pulse Ox O2 Delivery O2 Flow Rate FiO2 02/17/21 11:00 97.5 79 18 154/61 (92) Room Air 97.5 02/16/21 23:00 97 2.0 I & 0 Intake and Output 02/17/21 06:59 Intake Total 1258 ml Balance 1258 ml Intake Oral 120 ml IV Total 100 ml Blood Product IV Normal Saline Flush 1038 ml # Voids 2 # Bowel Movements 1 PHYSICAL EXAM Physical Exam General NAD HEEN OM moist Neck supple Lungs CTA, Non labored CV RRR Abd Soft, NT, BS + N Almanzar, Dai CVA or SP tenderness Neuro grossly Normal Derm No Rash Psych Very pleasant , Cooperative DIAGNOSIS/ASSESSMENT Assessment & Plan STEPHIE- vasomotor - Resolved . No labs today . UA unremarkable (no micr hematuria or UTI ) ; CT scan Unremarkable Kidneys Supportive care, Avoid nephrotoxins (Including NSAID's), Maintain hydration Long use of NSAID's- Recommend against it GI bleed - suspect PUD vs gastric / vs duodenal ulcer EGD duodenal ulcer clipped x2 on 02/16 . Anemia- Drop in Hgb POA, stable Spastic Colon per patient Fibromyalgia- takes Advil Will sign off COMMENT/RELEVANT DATA Meds Current Medications Medications (Trade) Dose Ordered Sig/Clotilde Start Time Stop Time Status Last Admin Dose Admin Acetaminophen (Tylenol Supp) 650 mg PRN Q4HRS PRN 02/15/21 13:15 Albuterol Sulfate (Ventolin Neb Soln) 2.5 mg PRN Q4HRS PRN 02/15/21 13:15 Docusate Sodium (Colace) 100 mg PRN BID PRN 02/15/21 13:15 Guaifenesin (Robitussin) 200 mg PRN Q4HRS PRN 02/15/21 13:15 Lidocaine HCl (Lidocaine Pf 2% Vial) 5 ml STK-MED ONCE 02/16/21 13:02 02/16/21 13:03 DC Multivitamins/ Minerals (I-Andrew) 1 tab DAILY 02/17/21 09:00 02/17/21 08:51 1 TAB Ondansetron HCl (Zofran) 4 mg PRN Q4HRS PRN 02/15/21 13:15 Pantoprazole Sodium (PROTONIX VIAL for IV PUSH) 40 mg DAILY07 02/15/21 14:00 02/17/21 13:43 DC 02/17/21 05:01 40 MG Pantoprazole Sodium (Protonix) 40 mg DAILYAC 02/18/21 07:30 Propofol (Diprivan) 200 mg STK-MED ONCE 02/16/21 13:02 02/16/21 13:03 DC Ringer's Solution 1,000 ml @ 50 mls/hr Q20H 02/16/21 11:00 02/16/21 22:59 DC 02/16/21 13:08 50 MLS/HR Sodium Chloride 1,000 ml @ 80 mls/hr [id number] 02/15/21 13:15 02/17/21 12:43 80 MLS/HR Sodium Chloride (Normal Saline Flush) 3 ml QSHIFT PRN 02/15/21 13:15 Vitamin D (Vitamin D3) 1,000 unit DAILY 02/16/21 09:00 02/17/21 08:51 1,000 UNIT Lab Laboratory Tests Test 02/17/21 04:30 White Blood Count 7.1 x10^3/uL (4.0-11.0) Red Blood Count 3.17 x10^6/uL (3.50-5.40) Hemoglobin 9.9 g/dL (12.0-15.5) Hematocrit 28.6 % (36.0-47.0) Mean Corpuscular Volume 90 fL (79-100) Mean Corpuscular Hemoglobin 31 pg (25-35) Mean Corpuscular Hemoglobin Concent 35 g/dL (31-37) Red Cell Distribution Width 15.0 % (11.5-14.5) Platelet Count 199 x10^3/uL (140-400) Neutrophils (%) (Auto) 53 % (31-73) Lymphocytes (%) (Auto) 39 % (24-48) Monocytes (%) (Auto) 5 % (0-9) Eosinophils (%) (Auto) 3 % (0-3) Basophils (%) (Auto) 1 % (0-3) Neutrophils # (Auto) 3.7 x10^3/uL (1.8-7.7) Lymphocytes # (Auto) 2.7 x10^3/uL (1.0-4.8) Monocytes # (Auto) 0.4 x10^3/uL (0.0-1.1) Eosinophils # (Auto) 0.2 x10^3/uL (0.0-0.7) Basophils # (Auto) 0.0 x10^3/uL (0.0-0.2) Results All relevant outside records, renal labs, imaging studies, telemetry/EKG's were reviewed. Justicifation of Admission Dx: Justifications for Admission: Justification of Admission Dx: N/A MARÍA MCNALLY MD Feb 17, 2021 14:22
[2021-02-17] MEDS ORDERED: traMADol 50 MG TABLET PO PRN (14:30)
[2021-02-17 15:00] VITALS: BP 147/60
[2021-02-17 16:40] LABS: BASO % 1 % (0-3); EOS # 0.2 x10^3/uL (0.0-0.7); EOS % 2 % (0-3); HEMATOCRIT 30.1 % (36.0-47.0); HEMOGLOBIN 10.1 g/dL (12.0-15.5); LYMPH # 2.1 x10^3/uL (1.0-4.8); LYMPH % 30 % (24-48); MEAN CORPUSCULAR HEMOGLOBIN 30 pg (25-35); MEAN CORPUSCULAR HGB CONC 34 g/dL (31-37); MEAN CORPUSCULAR VOLUME 91 fL (79-100); MONO # 0.5 x10^3/uL (0.0-1.1); MONO % 7 % (0-9); NEUT # 4.3 x10^3/uL (1.8-7.7); NEUT % 61 % (31-73); PLATELET COUNT 207 x10^3/uL (140-400); RED BLOOD COUNT 3.32 x10^6/uL (3.50-5.40); RED CELL DISTRIBUTION WIDTH 15.2 % (11.5-14.5)
[2021-02-17 19:00] VITALS: BP 149/71
[2021-02-17] MEDS ORDERED: traZODone 50 MG TABLET. PO SCH (21:00)
[2021-02-17 21:55] LABS: BASO % 0 % (0-3); EOS # 0.3 x10^3/uL (0.0-0.7); EOS % 3 % (0-3); HEMATOCRIT 27.9 % (36.0-47.0); HEMOGLOBIN 9.4 g/dL (12.0-15.5); LYMPH # 2.4 x10^3/uL (1.0-4.8); LYMPH % 32 % (24-48); MEAN CORPUSCULAR HEMOGLOBIN 31 pg (25-35); MEAN CORPUSCULAR HGB CONC 34 g/dL (31-37); MEAN CORPUSCULAR VOLUME 91 fL (79-100); MONO # 0.5 x10^3/uL (0.0-1.1); MONO % 7 % (0-9); NEUT # 4.2 x10^3/uL (1.8-7.7); NEUT % 57 % (31-73); PLATELET COUNT 191 x10^3/uL (140-400); RED BLOOD COUNT 3.06 x10^6/uL (3.50-5.40); RED CELL DISTRIBUTION WIDTH 14.8 % (11.5-14.5); WHITE BLOOD COUNT 7.4 x10^3/uL (4.0-11.0)
[2021-02-17 23:00] VITALS: BP 143/66
[2021-02-18] MEDS ORDERED: diphenhydrAMINE HCL 25 MG CAPSULE PO ONE (00:15)
[2021-02-18] MEDS ORDERED: FLUTICASONE 50MCG/NASAL SPRAY 16GM BOTTLE. NS PRN (00:15)
[2021-02-18] MEDS ORDERED: SODIUM CHLORIDE 0.65% NASAL SPRAY 45ML BOTTLE. NS PRN (00:15)
[2021-02-18] MEDS: IV NORMAL SALINE 1000ML BAG 1,000 ML IV SCH (00:24)
[2021-02-18 03:30] VITALS: BP 130/67
[2021-02-18 07:00] VITALS: BP 177/71
[2021-02-18] MEDS ORDERED: PANTOPRAZOLE 40 MG TABLET.DR. PO SCH (07:30)
[2021-02-18] MEDS: MULTIVITAMIN I-VITE TABLET. PO SCH (10:38)
[2021-02-18] MEDS: CHOLECALCIFEROL (VITAMIN D3) 1,000 UNIT TABLET PO SCH (10:38)
[2021-02-18 11:00] VITALS: BP 132/57
--- NOTE | 2021-02-18 12:15 | PDOC ---
[facility] PROGRESS NOTE Date of Service DOS: DATE: 02/18/21 TIME: 11:51 Chief Complaint Chief Complaint GI bleed suspect PUD vs gastric / vs duodenal ulcer sec to Advil Gastrointestinal hemorrhage, unspecified osteoarthritis STEPHIE suspect acute vasomotor nephropathy Near syncope, likely vasovagal near syncope Weakness with dizziness, multifactorial with acute blood loss , volume depletion History of Present Illness History of Present Illness 80 y/o female admitted through ER. 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 Awoke this morning, was very weak - almost couldn't stand. [place] dizzy, had the urge to stool. Passed a lot of black liquid/loose/watery stool. [place] terrible. No h/o anemia or GI bleeding. No reflux/heartburn but has been taking 2 Tums before bed x 4-5 months "just because." No dysphagia, n/v, change in appetite, or weight loss. Might have had some "stabbing" pain occasionally on right side. Takes some sort of laxative/stool softener daily for h/o constipation - good control. No previous EGD. "Spastic colon" on colonoscopy w/ Dr. Cramer >10 years ago. Might have had gallbladder removed but can't remember. No liver, pancreas, or PUD history. H/o fibromyalgia - takes Advil BID (morning and afternoon) and 2 Advil PM QHS. Recently tried magnesium for insomnia - took three instead of two last night. Vaccinated for COVID. Augustus present. 02/16: Diaphoretic overnight. Hb with a large drop to 6.9. She has not had any more dark bowel movements but does have nausea and dry heaves. 2 units PRBC ordered and n.p.o. 02/17: To EGD with duodenal ulcer clipped x2 and advance to clears IV PPI. Hb up to 9.9, CR down to 0.8 BUN 33. Wants sleep aid and something for fibromyalgia pain, offered trazodone. Has nasal congestion last night after trazodone, given benadryl, slept well. Hb 9.4, no BM as of yet. Pain free. Plan for protonix 4-6 weeks and outpatient GI f/u. Vitals/I&O Vitals/I&O: Vital Signs Date Time Temp Pulse Resp B/P (MAP) Pulse Ox O2 Delivery O2 Flow Rate FiO2 02/18/21 07:00 98.1 78 17 177/71 (106) 97 Room Air 98.1 02/17/21 23:00 2.0 I & O 02/17/21 02/17/21 02/18/21 15:00 23:00 07:00 Intake Total 240 ml 600 ml 240 ml Output Total 0 ml 1 ml Balance 240 ml 599 ml 240 ml Physical Exam General: Alert, Oriented X3, Cooperative Abdomen: Normal bowel sounds, Soft, No hepatosplenomegaly Extremities: No clubbing, No cyanosis, No edema Skin: No breakdown, No significant lesion Labs Labs: Laboratory Tests Test 02/17/21 15:30 02/17/21 21:45 White Blood Count 7.0 x10^3/uL (4.0-11.0) 7.4 x10^3/uL (4.0-11.0) Red Blood Count 3.32 x10^6/uL (3.50-5.40) 3.06 x10^6/uL (3.50-5.40) Hemoglobin 10.1 g/dL (12.0-15.5) 9.4 g/dL (12.0-15.5) Hematocrit 30.1 % (36.0-47.0) 27.9 % (36.0-47.0) Mean Corpuscular Volume 91 fL (79-100) 91 fL (79-100) Mean Corpuscular Hemoglobin 30 pg (25-35) 31 pg (25-35) Mean Corpuscular Hemoglobin Concent 34 g/dL (31-37) 34 g/dL (31-37) Red Cell Distribution Width 15.2 % (11.5-14.5) 14.8 % (11.5-14.5) Platelet Count 207 x10^3/uL (140-400) 191 x10^3/uL (140-400) Neutrophils (%) (Auto) 61 % (31-73) 57 % (31-73) Lymphocytes (%) (Auto) 30 % (24-48) 32 % (24-48) Monocytes (%) (Auto) 7 % (0-9) 7 % (0-9) Eosinophils (%) (Auto) 2 % (0-3) 3 % (0-3) Basophils (%) (Auto) 1 % (0-3) 0 % (0-3) Neutrophils # (Auto) 4.3 x10^3/uL (1.8-7.7) 4.2 x10^3/uL (1.8-7.7) Lymphocytes # (Auto) 2.1 x10^3/uL (1.0-4.8) 2.4 x10^3/uL (1.0-4.8) Monocytes # (Auto) 0.5 x10^3/uL (0.0-1.1) 0.5 x10^3/uL (0.0-1.1) Eosinophils # (Auto) 0.2 x10^3/uL (0.0-0.7) 0.3 x10^3/uL (0.0-0.7) Basophils # (Auto) 0.0 x10^3/uL (0.0-0.2) 0.0 x10^3/uL (0.0-0.2) Assessment and Plan Assessmemt and Plan Problems Medical Problems: (1) GI bleed Status: Acute (2) Near syncope Status: Acute (3) Weakness with dizziness Status: Acute Comment Review of Relevant I have reviewed the following items sharon (where applicable) has been applied. Medications: Current Medications Medications (Trade) Dose Ordered Sig/Clotilde Route PRN Reason Start Time Stop Time Status Last Admin Dose Admin Pantoprazole Sodium (Protonix) 40 mg DAILYAC PO 02/18/21 07:30 02/18/21 06:38 Tramadol HCl (Ultram) 50 mg PRN Q6HRS PRN PO PAIN 02/17/21 14:30 02/17/21 20:19 Trazodone HCl (Desyrel) 50 mg QHS PO 02/17/21 21:00 02/17/21 20:19 Diphenhydramine HCl (Benadryl) 25 mg 1X ONCE PO 02/18/21 00:15 02/18/21 00:16 DC 02/18/21 00:22 Sodium Chloride (Saline Mist Nasal) 1 maría PRN Q1HR PRN NS NASAL CONGESTION 02/18/21 00:15 02/18/21 00:23 Fluticasone Propionate (Flonase) 2 spray PRN BID PRN NS nasal congestion 02/18/21 00:15 02/18/21 00:23 Justifications for Admission General Conditions Hemodynamically stable?: No Other Justification MILADY TIWARI MD Feb 18, 2021 12:15
[2021-02-18] MEDS ORDERED: PANT40TA77 PO (12:17)
--- NOTE | 2021-02-18 12:21 | PDOC3 ---
Discharge Summary Visit Information Date of Admission: Feb 15, 2021 Date of Discharge: Feb 18, 2021 Admitting Diagnosis: Acute GI bleed Final Diagnosis Problems Medical Problems: (1) GI bleed Status: Acute (2) Near syncope Status: Acute (3) Weakness with dizziness Status: Acute Brief Hospital Course Allergies Allergies Coded Allergies Type Severity Reaction Last Updated Verified Penicillins Allergy Intermediate Rash 02/16/21 Yes Sulfa (Sulfonamide Antibiotics) Allergy Intermediate RASH 02/16/21 Yes latex Allergy Intermediate RASH 02/16/21 Yes Vital Signs Vital Signs Date Time Temp Pulse Resp B/P (MAP) Pulse Ox O2 Delivery O2 Flow Rate FiO2 02/18/21 07:00 98.1 78 17 177/71 (106) 97 Room Air 98.1 02/17/21 23:00 2.0 Lab Results Laboratory Tests Test 02/16/21 14:20 02/17/21 04:30 02/17/21 15:30 02/17/21 21:45 White Blood Count 6.8 x10^3/uL (4.0-11.0) 7.1 x10^3/uL (4.0-11.0) 7.0 x10^3/uL (4.0-11.0) 7.4 x10^3/uL (4.0-11.0) Red Blood Count 2.38 x10^6/uL (3.50-5.40) 3.17 x10^6/uL (3.50-5.40) 3.32 x10^6/uL (3.50-5.40) 3.06 x10^6/uL (3.50-5.40) Hemoglobin 7.3 g/dL (12.0-15.5) 9.9 g/dL (12.0-15.5) 10.1 g/dL (12.0-15.5) 9.4 g/dL (12.0-15.5) Hematocrit 22.3 % (36.0-47.0) 28.6 % (36.0-47.0) 30.1 % (36.0-47.0) 27.9 % (36.0-47.0) Mean Corpuscular Volume 94 fL (79-100) 90 fL (79-100) 91 fL (79-100) 91 fL (79-100) Mean Corpuscular Hemoglobin 31 pg (25-35) 31 pg (25-35) 30 pg (25-35) 31 pg (25-35) Mean Corpuscular Hemoglobin Concent 33 g/dL (31-37) 35 g/dL (31-37) 34 g/dL (31-37) 34 g/dL (31-37) Red Cell Distribution Width 14.3 % (11.5-14.5) 15.0 % (11.5-14.5) 15.2 % (11.5-14.5) 14.8 % (11.5-14.5) Platelet Count 225 x10^3/uL (140-400) 199 x10^3/uL (140-400) 207 x10^3/uL (140-400) 191 x10^3/uL (140-400) Neutrophils (%) (Auto) 52 % (31-73) 53 % (31-73) 61 % (31-73) 57 % (31-73) Lymphocytes (%) (Auto) 41 % (24-48) 39 % (24-48) 30 % (24-48) 32 % (24-48) Monocytes (%) (Auto) 5 % (0-9) 5 % (0-9) 7 % (0-9) 7 % (0-9) Eosinophils (%) (Auto) 1 % (0-3) 3 % (0-3) 2 % (0-3) 3 % (0-3) Basophils (%) (Auto) 1 % (0-3) 1 % (0-3) 1 % (0-3) 0 % (0-3) Neutrophils # (Auto) 3.5 x10^3/uL (1.8-7.7) 3.7 x10^3/uL (1.8-7.7) 4.3 x10^3/uL (1.8-7.7) 4.2 x10^3/uL (1.8-7.7) Lymphocytes # (Auto) 2.7 x10^3/uL (1.0-4.8) 2.7 x10^3/uL (1.0-4.8) 2.1 x10^3/uL (1.0-4.8) 2.4 x10^3/uL (1.0-4.8) Monocytes # (Auto) 0.4 x10^3/uL (0.0-1.1) 0.4 x10^3/uL (0.0-1.1) 0.5 x10^3/uL (0.0-1.1) 0.5 x10^3/uL (0.0-1.1) Eosinophils # (Auto) 0.1 x10^3/uL (0.0-0.7) 0.2 x10^3/uL (0.0-0.7) 0.2 x10^3/uL (0.0-0.7) 0.3 x10^3/uL (0.0-0.7) Basophils # (Auto) 0.1 x10^3/uL (0.0-0.2) 0.0 x10^3/uL (0.0-0.2) 0.0 x10^3/uL (0.0-0.2) 0.0 x10^3/uL (0.0-0.2) Laboratory Tests Test 02/17/21 15:30 02/17/21 21:45 White Blood Count 7.0 x10^3/uL (4.0-11.0) 7.4 x10^3/uL (4.0-11.0) Red Blood Count 3.32 x10^6/uL (3.50-5.40) 3.06 x10^6/uL (3.50-5.40) Hemoglobin 10.1 g/dL (12.0-15.5) 9.4 g/dL (12.0-15.5) Hematocrit 30.1 % (36.0-47.0) 27.9 % (36.0-47.0) Mean Corpuscular Volume 91 fL (79-100) 91 fL (79-100) Mean Corpuscular Hemoglobin 30 pg (25-35) 31 pg (25-35) Mean Corpuscular Hemoglobin Concent 34 g/dL (31-37) 34 g/dL (31-37) Red Cell Distribution Width 15.2 % (11.5-14.5) 14.8 % (11.5-14.5) Platelet Count 207 x10^3/uL (140-400) 191 x10^3/uL (140-400) Neutrophils (%) (Auto) 61 % (31-73) 57 % (31-73) Lymphocytes (%) (Auto) 30 % (24-48) 32 % (24-48) Monocytes (%) (Auto) 7 % (0-9) 7 % (0-9) Eosinophils (%) (Auto) 2 % (0-3) 3 % (0-3) Basophils (%) (Auto) 1 % (0-3) 0 % (0-3) Neutrophils # (Auto) 4.3 x10^3/uL (1.8-7.7) 4.2 x10^3/uL (1.8-7.7) Lymphocytes # (Auto) 2.1 x10^3/uL (1.0-4.8) 2.4 x10^3/uL (1.0-4.8) Monocytes # (Auto) 0.5 x10^3/uL (0.0-1.1) 0.5 x10^3/uL (0.0-1.1) Eosinophils # (Auto) 0.2 x10^3/uL (0.0-0.7) 0.3 x10^3/uL (0.0-0.7) Basophils # (Auto) 0.0 x10^3/uL (0.0-0.2) 0.0 x10^3/uL (0.0-0.2) Brief Hospital Course 80 y/o female admitted through ER. 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 Awoke this morning, was very weak - almost couldn't stand. [place] dizzy, had the urge to st ool. Passed a lot of black liquid/loose/watery stool. [place] terrible. No h/o anemia or GI bleeding. No reflux/heartburn but has been taking 2 Tums before bed x 4-5 months "just because." No dysphagia, n/v, change in appetite, or weight loss. Might have had some "stabbing" pain occasionally on right side. Takes some sort of laxative/stool softener daily for h/o constipation - good control. No previous EGD. "Spastic colon" on colonoscopy w/ Dr. Cramer >10 years ago. Might have had gallbladder removed but can't remember. No liver, pancreas, or PUD history. H/o fibromyalgia - takes Advil BID (morning and afternoon) and 2 Advil PM QHS. Recently tried magnesium for insomnia - took three instead of two last night. Vaccinated for COVID. Augustus present. 02/16: Diaphoretic overnight. Hb with a large drop to 6.9. She has not had any more dark bowel movements but does have nausea and dry heaves. 2 units PRBC ordered and n.p.o. 02/17: To EGD with duodenal ulcer clipped x2 and advance to clears IV PPI. Hb up to 9.9, CR down to 0.8 BUN 33. Wants sleep aid and something for fibromyalgia pain, offered trazodone. 02/18: Has nasal congestion last night after trazodone, given benadryl, slept well. Hb 9.4, no BM as of yet. Pain free. Plan for protonix 4-6 weeks and outpatient GI f/u. Consults: Nephrology, GI Problem list: GI bleed - PUD vs gastric / vs duodenal ulcer sec to Advil Gastrointestinal hemorrhage, unspecified osteoarthritis STEPHIE suspect acute vasomotor nephropathy Near syncope, likely vasovagal near syncope Weakness with dizziness, multifactorial with acute blood loss , volume depletion Plan: Schedule follow up with [facility] - Dr. Bowen [address] [place] [address] P: [phone] F: [phone] Stop advil. Take protonix twice daily with meals. Can take Tylenol PM for sleep. Topical Voltaren/diclofenac for arthritis pain. Psyllium/Metamucil for constipation and can add daily MiraLAX as needed this was magnesium hydroxide or magnesium citrate. Discharge Information Condition at Discharge: Improved Follow Up: Weeks (1) Disposition/Orders: D/C to Home Scheduled Metoprolol Tartrate (Metoprolol Tartrate) 25 Mg Tablet, 25 MG PO BID for FOR HYPERTENSION, #60 Ref 0 (Reported) Entered as Reported by: ALBIN MAGANA RN on 02/15/211821 Last Action: New Order on 02/15/211821 by ALBIN MAGANA RN Pantoprazole Sodium (Pantoprazole Sodium ) 40 Mg Tablet.dr, 40 MG PO BIDAC for GI bleed for 30 Days, #60 Prescribed by: MILADY TIWARI MD on 02/18/21 1217 Miscellaneous Medications Glucosamine Sulfate 2KCL (Glucosamine) 1,000 Mg Tablet, 1,000 MG PO, (Reported) Entered as Reported by: MARLON MULLER on 12/22/13823 Last Action: Reviewed on 02/15/211821 by ALBIN MAGANA RN Vit A,C & E/Lutein/Minerals (Ocuvite Tablet) 1 Each Tablet, 1 EACH PO, (Reported) Entered as Reported by: MARLON MULLER on 12/22/13823 Last Action: Continued on 02/15/211318 by DAVE JOSEPH MD Discontinued Medications Diazepam (Diazepam) 5 Mg Tablet, 1 TAB PO BID, #60 (Reported) Entered as Reported by: MARLON MULLER on 12/22/13823 Last Action: HELD on 02/15/211318 by DAVE JOSEPH MD Ibuprofen (Advil) 200 Mg Capsule, 200 MG PO, (Reported) Entered as Reported by: MARLON MULLER on 12/22/13823 Last Action: Discontinued on 02/15/211318 by DAVE JOSEPH MD Justicifation of Admission Dx: Justifications for Admission: Justification of Admission Dx: N/A MILADY TIWARI MD Feb 18, 2021 12:21
--- NOTE | 2021-02-18 13:33 | PDOC ---
G I PROGRESS NOTE Subjective No complaints. Preparing to go home. Physical Exam Lungs clear anteriorly. RRR Abdomen soft, not tender. Review of Relevant I have reviewed the following items sharon (where applicable) has been applied. Labs Laboratory Tests Test 02/16/21 14:20 02/17/21 04:30 02/17/21 15:30 02/17/21 21:45 White Blood Count 6.8 x10^3/uL (4.0-11.0) 7.1 x10^3/uL (4.0-11.0) 7.0 x10^3/uL (4.0-11.0) 7.4 x10^3/uL (4.0-11.0) Red Blood Count 2.38 x10^6/uL (3.50-5.40) 3.17 x10^6/uL (3.50-5.40) 3.32 x10^6/uL (3.50-5.40) 3.06 x10^6/uL (3.50-5.40) Hemoglobin 7.3 g/dL (12.0-15.5) 9.9 g/dL (12.0-15.5) 10.1 g/dL (12.0-15.5) 9.4 g/dL (12.0-15.5) Hematocrit 22.3 % (36.0-47.0) 28.6 % (36.0-47.0) 30.1 % (36.0-47.0) 27.9 % (36.0-47.0) Mean Corpuscular Volume 94 fL (79-100) 90 fL (79-100) 91 fL (79-100) 91 fL (79-100) Mean Corpuscular Hemoglobin 31 pg (25-35) 31 pg (25-35) 30 pg (25-35) 31 pg (25-35) Mean Corpuscular Hemoglobin Concent 33 g/dL (31-37) 35 g/dL (31-37) 34 g/dL (31-37) 34 g/dL (31-37) Red Cell Distribution Width 14.3 % (11.5-14.5) 15.0 % (11.5-14.5) 15.2 % (11.5-14.5) 14.8 % (11.5-14.5) Platelet Count 225 x10^3/uL (140-400) 199 x10^3/uL (140-400) 207 x10^3/uL (140-400) 191 x10^3/uL (140-400) Neutrophils (%) (Auto) 52 % (31-73) 53 % (31-73) 61 % (31-73) 57 % (31-73) Lymphocytes (%) (Auto) 41 % (24-48) 39 % (24-48) 30 % (24-48) 32 % (24-48) Monocytes (%) (Auto) 5 % (0-9) 5 % (0-9) 7 % (0-9) 7 % (0-9) Eosinophils (%) (Auto) 1 % (0-3) 3 % (0-3) 2 % (0-3) 3 % (0-3) Basophils (%) (Auto) 1 % (0-3) 1 % (0-3) 1 % (0-3) 0 % (0-3) Neutrophils # (Auto) 3.5 x10^3/uL (1.8-7.7) 3.7 x10^3/uL (1.8-7.7) 4.3 x10^3/uL (1.8-7.7) 4.2 x10^3/uL (1.8-7.7) Lymphocytes # (Auto) 2.7 x10^3/uL (1.0-4.8) 2.7 x10^3/uL (1.0-4.8) 2.1 x10^3/uL (1.0-4.8) 2.4 x10^3/uL (1.0-4.8) Monocytes # (Auto) 0.4 x10^3/uL (0.0-1.1) 0.4 x10^3/uL (0.0-1.1) 0.5 x10^3/uL (0.0-1.1) 0.5 x10^3/uL (0.0-1.1) Eosinophils # (Auto) 0.1 x10^3/uL (0.0-0.7) 0.2 x10^3/uL (0.0-0.7) 0.2 x10^3/uL (0.0-0.7) 0.3 x10^3/uL (0.0-0.7) Basophils # (Auto) 0.1 x10^3/uL (0.0-0.2) 0.0 x10^3/uL (0.0-0.2) 0.0 x10^3/uL (0.0-0.2) 0.0 x10^3/uL (0.0-0.2) Laboratory Tests Test 02/17/21 15:30 02/17/21 21:45 White Blood Count 7.0 x10^3/uL (4.0-11.0) 7.4 x10^3/uL (4.0-11.0) Red Blood Count 3.32 x10^6/uL (3.50-5.40) 3.06 x10^6/uL (3.50-5.40) Hemoglobin 10.1 g/dL (12.0-15.5) 9.4 g/dL (12.0-15.5) Hematocrit 30.1 % (36.0-47.0) 27.9 % (36.0-47.0) Mean Corpuscular Volume 91 fL (79-100) 91 fL (79-100) Mean Corpuscular Hemoglobin 30 pg (25-35) 31 pg (25-35) Mean Corpuscular Hemoglobin Concent 34 g/dL (31-37) 34 g/dL (31-37) Red Cell Distribution Width 15.2 % (11.5-14.5) 14.8 % (11.5-14.5) Platelet Count 207 x10^3/uL (140-400) 191 x10^3/uL (140-400) Neutrophils (%) (Auto) 61 % (31-73) 57 % (31-73) Lymphocytes (%) (Auto) 30 % (24-48) 32 % (24-48) Monocytes (%) (Auto) 7 % (0-9) 7 % (0-9) Eosinophils (%) (Auto) 2 % (0-3) 3 % (0-3) Basophils (%) (Auto) 1 % (0-3) 0 % (0-3) Neutrophils # (Auto) 4.3 x10^3/uL (1.8-7.7) 4.2 x10^3/uL (1.8-7.7) Lymphocytes # (Auto) 2.1 x10^3/uL (1.0-4.8) 2.4 x10^3/uL (1.0-4.8) Monocytes # (Auto) 0.5 x10^3/uL (0.0-1.1) 0.5 x10^3/uL (0.0-1.1) Eosinophils # (Auto) 0.2 x10^3/uL (0.0-0.7) 0.3 x10^3/uL (0.0-0.7) Basophils # (Auto) 0.0 x10^3/uL (0.0-0.2) 0.0 x10^3/uL (0.0-0.2) Vitals/I & O Vital Sign - Last 24 Hours 02/17/21 02/17/21 02/17/21 02/17/21 15:00 19:00 20:00 20:19 Temp 98.3 98.6 98.3 98.6 Pulse 73 74 Resp 18 18 18 B/P (MAP) 147/60 (89) 149/71 (97) Pulse Ox 97 97 O2 Delivery Room Air Room Air Room Air Room Air O2 Flow Rate 2.0 2.0 02/17/21 02/17/21 02/18/21 02/18/21 20:49 23:00 03:30 07:00 Temp 98.6 97.3 98.1 98.6 97.3 98.1 Pulse 69 70 78 Resp 18 18 18 17 B/P (MAP) 143/66 (91) 130/67 (88) 177/71 (106) Pulse Ox 97 97 97 97 O2 Delivery Room Air Room Air Room Air Room Air O2 Flow Rate 2.0 2.0 02/18/21 02/18/21 07:50 11:00 Temp 98.1 98.1 Pulse 77 Resp 17 B/P (MAP) 132/57 (82) Pulse Ox 94 O2 Delivery Room Air Room Air Intake and Output 02/17/21 02/17/21 02/18/21 15:00 23:00 07:00 Intake Total 240 ml 600 ml 240 ml Output Total 0 ml 1 ml Balance 240 ml 599 ml 240 ml Problem List Problems Medical Problems: (1) GI bleed Status: Acute (2) Near syncope Status: Acute (3) Weakness with dizziness Status: Acute Assessment NSAID ulcers with bleeding likely, biopsies pending re: H.pylori. Stable. Plan of Care Note OK to go home. PPI. F/u with me in 2-3 weeks. Justicifation of Admission Dx: Justifications for Admission: Justification of Admission Dx: N/A JOEY GARCES MD Feb 18, 2021 13:33
--- NOTE | 2021-02-18 14:00 | NUR ---
Discharge Note: ZO BANEGAS [address] Discharge instructions and discharge home medications reviewed with Patient and a copy given. All questions have been answered and understanding verbalized. The following instructions and handouts were given: Follow up with Dr. Zhong Discontinued line and telemetry. Patient discharged to Home with Self-Care.
--- NOTE | 2021-02-19 14:06 | PATHOLOGY ---
[facility] Accession Number: [id number] . 01 Material submitted: . gastrointestinal site - GASTRIC ULCER BIOPSY . 01 Clinical history: . GI BLEED EGD SYNCOPE . 02 Diagnosis: Gastric biopsy, gastric ulcer: - Chronic gastritis, mild, with focal mucosal edema, foveolar hyperplasia, and mild acute and chronic inflammation consistent with ulcer. LBQ 02/19/2021 1218 Local . 02 Comment: Sections of the gastric ulcer biopsy reveal segments of gastric antral mucosa showing mild chronic inflammation with focal mucosal edema, foveolar hyperplasia, and mild acute and chronic inflammation consistent with mucosa bordering on ulcer. A properly controlled immunoperoxidase stain for Helicobacter is negative for Helicobacter organisms. There is no evidence of malignancy. (JPM/db; 02/19/2021) . Special stain performed: Immunoperoxidase stain for Helicobacter on A1 . 02 Electronically signed: . Sunny Tolbert MD, Pathologist NPI- [id number] . 01 Gross description: . Received in formalin labeled "Mayte Isidro, gastric ulcer BX" are 2 pani[place]-brown soft tissue fragments measuring in aggregate 0.6 x 0.5 x 0.1 cm. The specimen is submitted entirely in A1. [place] [place] 02/17/2021 0903 Local . 02 Pathologist provided ICD-10: K29.50 . 02 CPT . 073007, [id number] Specimen Comment: A courtesy copy of this report has been sent to [phone], [phone] Specimen Comment: [phone], , Specimen Comment: Report sent to , DR JOSEPH, DR PHILLIPS / Specimen Comment: DR MALDONADO Specimen Comment: A duplicate report has been generated due to demographic updates. Performed at: 01 [facility] [address] [facility] [address], [place] [id number] MD Jose Castro MD Phone: [phone] Performed at: 02 [facility] [address] [place], [place] [id number] MD Sunny Tolbert MD Phone: [phone]
== END 2021-02-18 14:00 | disposition home or self-care (01) | DRG 377 ==
LOC: ER 10:46 → 5 SOUTH 12:13
PROVIDERS: ADMIT Family Medicine; ATTEND Family Medicine
PROC: 0DB68ZX Excision of Stomach, Via Natural or Artificial Opening Endoscopic, Diagnostic (ICD-10-PCS; 2021-02-15)
PROC: 0W3P8ZZ Control Bleeding in Gastrointestinal Tract, Via Natural or Artificial Opening Endoscopic (ICD-10-PCS; 2021-02-15)
PROC: 30233N1 Transfusion of Nonautologous Red Blood Cells into Peripheral Vein, Percutaneous Approach (ICD-10-PCS; principal; 2021-02-16 13:30)
DX: K25.4 Chronic or unspecified gastric ulcer with hemorrhage (principal); N17.0 Acute kidney failure with tubular necrosis; K26.4 Chronic or unspecified duodenal ulcer with hemorrhage; R79.1 Abnormal coagulation profile; D64.9 Anemia, unspecified; E11.9 Type 2 diabetes mellitus without complications; E78.5 Hyperlipidemia, unspecified; E86.9 Volume depletion, unspecified; G47.00 Insomnia, unspecified; M19.90 Unspecified osteoarthritis, unspecified site; M79.7 Fibromyalgia; Z83.3 Family history of diabetes mellitus; Z90.11 Acquired absence of right breast and nipple; Z90.49 Acquired absence of other specified parts of digestive tract; Z92.3 Personal history of irradiation; K57.31 Diverticulosis of large intestine without perforation or abscess with bleeding
CPT/HCPCS: 36415; 36430; 43239; 43255; 71045; 74176; 80053; 81001; 82274; 82553; 83735; 84100; 84484; 85025; 85610; 85730; 86850; 86900; 86901; 86920; 87426; 88305; 88342; 93005; 96360; 96361; C9113; J2704; J7030; J7120; P9016; U0003; U0005; 97116-GP; 99285-25; G0378; Q0163